=== PATIENT | female | born 1975 | race Caucasian/White ===

== ENCOUNTER 2023-10-20 09:02 | Inpatient (IN) | payer BC, SELFPAY ==
[2023-10-20] VITALS (35 sets, daily range): BP systolic 91–123; BP diastolic 61–78; PULSE 74–95; RESP 18; TEMP 36.6–37.1; O2SAT 90–99; BMI 23.0; BMI 23.1
--- NOTE | 2023-10-20 09:25 | CT_ITS ---
Patient: PEDRO RUSH Facility:?[facility] RIS Patient ID:?[id number] Site Patient ID:?[id number]. Site :?[id number] Study:?CT-Head WITHOUT-10/20/2023 9:54:10 AM Ordering Physician:KAVITA Final Report: Indication: Fall Technique: Volumetric multidetector CT images of the head were obtained without the administration of low osmolar intravenous contrast. Comparison: None available Findings: There is no intra-axial or extra-axial fluid collection. There is no mass effect or midline shift. The ventricles and sulci are normal in size and position for age. There is mild chronic small vessel disease change within the subcortical and periventricular white matter. Otherwise, the brain parenchyma is preserved in attenuation and ahuja-white differentiation. The orbits and their contents are grossly within normal limits. The bony calvarium is grossly intact. The paranasal sinuses are clear. The mastoid air cells are well aerated. Impression: Chronic small-vessel disease changes of the white matter without acute intracranial abnormality. Please note that all CT scans at this facility use dose modulation, iterative reconstruction, and/or weight-based dosing when appropriate to reduce radiation dose to as low as reasonably achievable. Dictated by Joe Pimentel MD @ 10/20/2023 9:57:33 AM Signed by:?Joe Pimentel MD @10/20/2023 9:57:33 AM (Electronic Signature)
--- NOTE | 2023-10-20 09:41 | ED.GENADULT ---
HPI - General Adult General Date Seen: 10/20/23 Chief complaint: Fall/Minor Trauma Stated complaint: fall, dizzy. head pain Time Seen by Provider: 10/20/23 09:25 Source: patient and RN notes reviewed Mode of arrival: ambulatory Limitations: no limitations History of Present Illness HPI narrative: Patient is a 48-year-old woman here for evaluation of fall with loss of consciousness, dizziness, suspect dehydration. She says on Friday and a little bit yesterday she had vomiting without associated diarrhea. Last night, she says she felt dizzy and fell, she is not sure if she passed out and fell and hit her head or if she hit her head and was knocked out but she does think she was briefly unconscious. She said there was a little bit of bleeding from the back of her scalp although she can not find a wound now. She denies neck pain but does have a little bit of a headache and has felt persistently dizzy. She is concerned that she might be dehydrated as she has not urinated since 10:00 last night. She says she has been able to drink fluids but has not been able to eat very much. She has not had significant abdominal pain. No fevers. She smokes, she says that she is ?trying to quit when I asked about alcohol. She says she did have some alcohol last night, but she has been trying to wean herself off and thinks that may be contributing to the vomiting. Denies other substance use. Related Data Allergies Allergy/AdvReac Type Severity Reaction Status Date / Time No Known Drug Allergies Allergy Verified 10/20/23 09:14 Review of Systems Status of ROS: Reports: 10 or more systems reviewed and unremarkable except as noted in History and below [facility] Social History Smoking Status: Current some day smoker What tobacco products do you use: cigarettes Smoking packs per day: 1 Smoking cigarettes per day: 20.0 Do you use any of these nicotine containing products: None How often do you have a drink containing alcohol: 2-3 times a week How many standard drinks containing alcohol do you have on a typical day: 3 or 4 How often do you have six or more drinks on one occasion: Never AUDIT-C Alcohol total score: 4 Non-prescribed substance use: denies use Exam Narrative: Exam Narrative: Vital signs as noted above. In general, an alert, nontoxic woman. Head: Normocephalic, atraumatic. I am not able to find any hematoma, laceration or other wounds. Eyes: Pupils are equal reactive. Extraocular movements are full. Conjunctivae are normal. ENT: Mucous membranes are slightly dry peer Neck: Supple without lymphadenopathy. Heart: Regular rate and rhythm. No murmur or rub. Lungs: Clear bilaterally. No increased work of breathing, crackles or wheezes. Abdomen: Soft and nontender. No organomegaly. Extremities: Well perfused. No edema. No calf tenderness. Pulses intact. Neurologic: Patient is alert and oriented to person and place. Speech is fluent. Face is symmetric. Moves all extremities equally. No tremulousness. Affect: Normal. Skin: Warm and dry. Well perfused. Const: Vital Signs, click to edit/add: Vital Signs - 24 hr 10/20/23 09:07 10/20/23 09:36 10/20/23 09:37 Temperature 97.9 F Pulse Rate 87 86 Pulse Rate [Right Pulse Oximeter] 95 Respiratory Rate 18 Blood Pressure 98/71 Blood Pressure [Ri ght Upper Arm] 91/61 Pulse Oximetry 95 94 94 Oxygen Delivery Me thod Room Air 10/20/23 09:47 10/20/23 09:51 10/20/23 10:00 Temperature Pulse Rate 82 88 85 Pulse Rate [Right Pulse Oximeter] Respiratory Rate Blood Pressure 102/71 Blood Pressure [Ri ght Upper Arm] Pulse Oximetry 95 96 96 Oxygen Delivery Me thod 10/20/23 10:01 10/20/23 10:11 10/20/23 10:11 Temperature Pulse Rate 81 84 84 Pulse Rate [Right Pulse Oximeter] Respiratory Rate Blood Pressure 103/71 99/70 99/70 Blood Pressure [Ri ght Upper Arm] Pulse Oximetry 97 96 96 Oxygen Delivery Me thod 10/20/23 10:15 10/20/23 10:21 10/20/23 10:30 Temperature Pulse Rate 85 83 80 Pulse Rate [Right Pulse Oximeter] Respiratory Rate Blood Pressure 97/78 Blood Pressure [Ri ght Upper Arm] Pulse Oximetry 97 93 95 Oxygen Delivery Me thod 10/20/23 10:32 10/20/23 10:33 10/20/23 10:42 Temperature Pulse Rate 78 82 81 Pulse Rate [Right Pulse Oximeter] Respiratory Rate Blood Pressure 97/65 100/69 Blood Pressure [Ri ght Upper Arm] Pulse Oximetry 95 95 95 Oxygen Delivery Me thod 10/20/23 10:45 10/20/23 10:52 10/20/23 11:01 Temperature Pulse Rate 82 83 Pulse Rate [Right Pulse Oximeter] Respiratory Rate Blood Pressure 108/71 107/72 Blood Pressure [Ri ght Upper Arm] Pulse Oximetry 97 94 Oxygen Delivery Me thod 10/20/23 11:08 10/20/23 11:15 10/20/23 11:30 Temperature Pulse Rate 83 82 86 Pulse Rate [Right Pulse Oximeter] Respiratory Rate Blood Pressure Blood Pressure [Ri ght Upper Arm] Pulse Oximetry 98 98 95 Oxygen Delivery Me thod 10/20/23 11:31 Temperature Pulse Rate 87 Pulse Rate [Right Pulse Oximeter] Respiratory Rate Blood Pressure 113/77 Blood Pressure [Ri ght Upper Arm] Pulse Oximetry 93 Oxygen Delivery Me thod Documenting provider has reviewed patient's vital signs: yes Course Course ED Course: Given lack of clarity about whether not she had a loss of consciousness due to hitting her head, did order a CT scan of the head. Lab an EKG also pending, will place an IV and give a L of normal saline, check alcohol level and venous gas. Neurologic exam is reassuring. Head CT by my review is negative, final radiology read is negative for acute findings. Labs are notable for a normal white blood cell count hemoglobin, platelets are low likely related to alcohol. Gas showed a pH of 7.47, venous bicarb was 37, however she does appear to be significantly dehydrated with a sodium of 128, an initial potassium of 2.6 and a creatinine of 2.9. Initial gap was 16. LFTs are predictably mildly abnormal with a bilirubin of 2.2, AST 143 an ALT of 38, likely related alcohol use. Lipase was normal. Urinalysis pending. Blood alcohol was negative here. She had a total of 2 L of normal saline, 50 mEq of oral potassium and 10 of IV potassium. I rechecked her metabolic panel and while her potassium is now normal at 3.6 I suspect this will fall back down as she read distributes her potassium. Magnesium was 1.8. She continues to show sign of acute kidney injury with a creatinine of 2.5. Baseline is found to be 0.8 a couple of years ago. I have recommended that she stay for continued hydration, replacement of potassium, and trending of labs. Vital Signs Vital signs: Initial Vital Signs Temperature 97.9 F 10/20/23 09:07 Temperature Source Temporal Artery Scan 10/20/23 09:07 Pulse Rate 95 10/20/23 09:07 Pulse Rhythm Regular 10/20/23 09:07 Respiratory Rate 18 10/20/23 09:07 Blood Pressure 91/61 10/20/23 09:07 Blood Pressure Mean 71 10/20/23 09:07 Blood Pressure Position Sitting 10/20/23 09:07 Pulse Oximetry 95 10/20/23 09:07 Oxygen Delivery Method Room Air 10/20/23 09:07 Vital Signs Temperature 97.9 F 10/20/23 09:07 Pulse Rate 95 10/20/23 09:07 Respiratory Rate 18 10/20/23 09:07 Blood Pressure 91/61 10/20/23 09:07 Pulse Oximetry 95 10/20/23 09:07 Oxygen Delivery Method Room Air 10/20/23 09:07 Temperature 97.9 F 10/20/23 09:07 Pulse Rate 87 10/20/23 11:31 Respiratory Rate 18 10/20/23 09:07 Blood Pressure 113/77 10/20/23 11:31 Pulse Oximetry 93 10/20/23 11:31 Oxygen Delivery Method Room Air 10/20/23 09:07 Medications Administered Medications: Discontinued Medications Generic Name Dose Route Start Last Admin Trade Name Freq PRN Reason Stop Dose Admin Sodium Chloride 1,000 mls @ 1,000 mls/hr 10/20/23 09:45 10/20/23 11:00 0.9 % Sodium Chloride 1000 Ml IV 10/20/23 10:44 Infused .Q1H BRANDIE Infusion Sodium Chloride 1,000 mls @ 1,000 mls/hr 10/20/23 10:45 10/20/23 12:17 0.9 % Sodium Chloride 1000 Ml IV 10/20/23 11:44 Infused .Q1H BRANDIE Infusion Potassium Chloride 10 meq in 100 mls @ 100 mls/hr 10/20/23 10:44 10/20/23 12:05 Potassium Chloride IVPB 10/20/23 11:43 Infused ONCE ONE Infusion Ondansetron HCl 4 mg 10/20/23 09:56 10/20/23 10:16 Ondansetron 2 Mg/Ml Inj IVP 10/20/23 09:57 4 mg ONCE ONE Administration Potassium Bicarbonate 50 meq 10/20/23 10:44 10/20/23 11:00 Potassium Bicarb 25 Meq Effervescent Tab PO 10/20/23 10:45 50 meq ONCE ONE Administration Medical Decision Making Lab Data Labs: Lab Results 10/20/23 10/20/23 Range/Units 09:50 12:13 WBC 9.59 (4.50-11.00) K/uL RBC 4.58 (4.00-5.20) m/uL Hgb 15.5 (12.0-16.0) gm/dL Hct 44.7 (33.0-51.0) % MCV 98 (80-100) fL MCH 34 (26-34) pg MCHC 35 (32-36) gm/dL RDW Coeff of Iliana 11.7 (11.5-15.5) % Plt Count 99 L (140-440) K/uL Neut % (Auto) 63.0 (42.0-72.0) % Lymph % (Auto) 27.8 (20-44) % [place] % (Auto) 7.6 (0.0-11.0) % Eos % (Auto) 1.0 (0.0-7.0) % Baso % (Auto) 0.4 (0.0-3.0) % Neut # (Auto) 6.03 (1.7-7.0) K/uL Lymph # (Auto) 2.67 (0.90-2.90) K/uL [place] # (Auto) 0.70 (0.00-0.90) K/UL Eos # (Auto) 0.10 (0.00-0.50) K/uL Baso # (Auto) 0.04 (0.00-0.30) K/uL Abs Immat Gran (auto) 0.02 (0.00-0.30) K/uL Imm/Tot Granulo (auto) 0.2 % VBG pH 7.473 H (7.32-7.43) VBG pCO2 50 (40-50) mmHG VBG pO2 < 30.1 (25-47) mmHG VBG HCO3 37 H (21-28) mmol/L Sodium 128 L 128 L (135-149) mmol/L Potassium 2.6 L* 3.6 (3.6-5.1) mmol/L Chloride 78 L 85 L (96-114) mmol/L Carbon Dioxide 34 H 32 (20-32) mmol/L Anion Gap 16 H 11 (7-15) mEq/L BUN 32 H 30 H (5-24) mg/dL Creatinine 2.9 H 2.5 H (0.5-1.5) mg/dL Estimated Creat Clear 19.62 22.76 Estimated GFR 19 23 ml/min Glucose 101 94 (60-115) mg/dL Calcium 9.8 8.0 L (8.4-10.6) mg/dL Magnesium 1.8 (1.5-2.6) mg/dL Total Bilirubin 2.2 H (0.1-1.5) mg/dL Direct Bilirubin 0.9 H (0.0-0.5) mg/dL AST 143 H (12-35) U/L ALT 38 H (4-35) U/L Alkaline Phosphatase 152 H (40-150) U/L Total Protein 9.2 H (6.0-8.3) g/dL Albumin 5.1 H (3.3-5.0) g/dL Lipase 225 (23-300) U/L Ethyl Alcohol < 0.01 L (0.01-0.03) % Discharge Plan Discharge Follow Up/Referrals: Christine Jeffrey PA-C [Primary Care Provider] -
[2023-10-20] MEDS: 0.9 % SODIUM CHLORIDE 1000 ml 1,000 ML IV ×2 (09:53→11:05)
[2023-10-20 10:03] LABS: HCO3 VBG 37 mmol/L (21-28); PCO2 VBG 50 mmHG (40-50); PO2 VBG < 30.1 mmHG (25-47); pH VBG 7.473 (7.32-7.43)
[2023-10-20 10:07] LABS: Basophils Absolute Auto 0.04 K/uL (0.00-0.30); Basophils Percent Auto 0.4 % (0.0-3.0); Hematocrit 44.7 % (33.0-51.0); Hemoglobin* 15.5 gm/dL (12.0-16.0); Immature Granulocytes Abs Auto 0.02 K/uL (0.00-0.30); Immature Granulocytes Pct Auto 0.2 %; Lymphocytes Absolute Auto 2.67 K/uL (0.90-2.90); Lymphocytes Percent Auto 27.8 % (20-44); Mean Corpuscular HGB Conc 35 gm/dL (32-36); Mean Corpuscular Hemoglobin 34 pg (26-34); Mean Corpuscular Volume 98 fL (80-100); Monocytes Percent Auto 7.6 % (0.0-11.0); Neutrophils Absolute Auto 6.03 K/uL (1.7-7.0); Platelet Count* 99 K/uL (140-440); RDW Coefficient of Variation % 11.7 % (11.5-15.5); Red Blood Count 4.58 m/uL (4.00-5.20); White Blood Count* 9.59 K/uL (4.50-11.00)
[2023-10-20 10:14] LABS: Slide Review Reflex No
[2023-10-20] MEDS: ONDANSETRON 2 MG/ML inj 4 MG IVP (10:16)
[2023-10-20 10:28] LABS: Albumin* 5.1 g/dL (3.3-5.0)
[2023-10-20 10:29] LABS: Chloride* 78 mmol/L (96-114); Sodium* 128 mmol/L (135-149)
[2023-10-20 10:31] LABS: Anion Gap 16 mEq/L (7-15); Bilirubin Direct* 0.9 mg/dL (0.0-0.5); Bilirubin Total* 2.2 mg/dL (0.1-1.5); Carbon Dioxide* 34 mmol/L (20-32); Creatinine* 2.9 mg/dL (0.5-1.5); Est. Creatinine Clearance* 19.62; Estimated Glomerular Filt Rate 19 ml/min; Total Protein* 9.2 g/dL (6.0-8.3)
[2023-10-20 10:32] LABS: Alanine Aminotransferase* 38 U/L (4-35); Alkaline Phosphatase* 152 U/L (40-150); Aspartate Amino Transferase* 143 U/L (12-35); Blood Urea Nitrogen* 32 mg/dL (5-24); Calcium* 9.8 mg/dL (8.4-10.6); Glucose* 101 mg/dL (60-115); Lipase* 225 U/L (23-300)
[2023-10-20 10:38] LABS: Ethanol* < 0.01 % (0.01-0.03); Potassium* 2.6 mmol/L (3.6-5.1)
[2023-10-20] MEDS: POTASSIUM BICARB 25 MEQ EFFERVESCENT TAB 50 MEQ PO (11:00)
[2023-10-20] MEDS: POTASSIUM CHLORIDE 10 MEQ/100 ML PIGGYBACK 100 MEQ IVPB (11:05)
[2023-10-20 12:18] LABS: Magnesium* 1.8 mg/dL (1.5-2.6)
[2023-10-20 12:31] LABS: Chloride* 85 mmol/L (96-114); Potassium* 3.6 mmol/L (3.6-5.1); Sodium* 128 mmol/L (135-149)
[2023-10-20 12:34] LABS: Anion Gap 11 mEq/L (7-15); Carbon Dioxide* 32 mmol/L (20-32); Creatinine* 2.5 mg/dL (0.5-1.5); Est. Creatinine Clearance* 22.76; Estimated Glomerular Filt Rate 23 ml/min
[2023-10-20 12:35] LABS: Blood Urea Nitrogen* 30 mg/dL (5-24); Glucose* 94 mg/dL (60-115)
[2023-10-20 13:10] LABS: Appearance Urine Clear (Clear); Bilirubin Urine Negative (Negative); Blood Urine Trace-lysed (Negative); Color Urine Yellow (Yellow); Glucose Urine Negative (Negative); Ketones Urine Negative (Negative); Leukocyte Esterase Urine Negative (Negative); Nitrite Urine Negative (Negative); Protein Urine Negative (Negative); Urobilinogen Urine 0.2 (0.2-1.0); pH Urine 7.5 (5.0-8.5)
[2023-10-20 13:24] LABS: RBC Urine 0-2 (0-2); Squamous Epithelial Cell Urine Few (None-Few); WBC Urine 0-2 (0-5)
--- NOTE | 2023-10-20 13:35 | ED.NURSE ---
report given to marie RAMIREZ.
[2023-10-20 14:04] LABS: INR 0.95 (0.91-1.10); Prothrombin Time 13.2 Seconds
[2023-10-20] MEDS: CALCIUM CARBONATE 500 MG CHEW PO (14:17)
--- NOTE | 2023-10-20 14:56 | PM.IMHP1 ---
Hospitalist- H&P: HPI History of Present Illness Date Seen: 10/20/23 Chief complaint: fall, dizzy. head pain Narrative: Ganga Blanc is a 48 year old female who presented to the ER today for a 3-4 day history of vomiting, dizziness, and concerns of dehydration. Vomiting began on Friday. No recent travel or concerning food intake, no hematemesis, no diarrhea. Her dizziness was severe last night, and she had a fall at home (unknown if she had true LOC). Worried that symptoms were related to attempt at cutting down on ETOH intake (had been drinking 1L of ETOH daily for some time, slowly cutting down). She had a couple of drinks last night, which helped symptoms. ER Course and Findings: - hypokalemia, given both oral and IV potassium replacement - hypotension on arrival with concern for dehydration, received 2L of NS - lab abnormalities: creatinine 2.8 (baseline <1), elevated LFTs and bilirubin, thrombocytopenia, hypokalemia and hypomagnesemia - negative head CT Labs repeated after electrolyte and IVF replaced; remained abnormal, so patient admitted for further management of GIORGIO, elevated LFTs, and ETOH withdrawal. Histories updated below, PCP is Christine Jeffrey PA-C at [facility]. Review of Systems Narrative: - notes early satiety for the past year or so - no CP, no palpitations, no dyspnea - + dry skin, no pruritis or discreet rashes PFSH PFS Medical History (Updated 10/20/23 @ 18:14 by Madiha Johnson MD) Hypothyroidism ?E03.9 - Hypothyroidism, unspecified (ICD-10) Essential hypertension ?I10 - Essential (primary) hypertension (ICD-10) Alcohol use disorder ?F10.90 - Alcohol use, unspecified, uncomplicated (ICD-10) Elevated LFTs ?R79.89 - Other specified abnormal findings of blood chemistry (ICD-10) Surgical History (Updated 10/20/23 @ 15:17 by Madiha Johnson MD) No history of previous surgery Family History (Updated 10/20/23 @ 15:17 by Madiha Johnson MD) Son Liver disease Social History (Updated 10/20/23 @ 15:17 by Madiha Johnson MD) Narrative: in 2014, currently living with son Guy. Daughter Rajwinder in [place], children would share medical decision making if needed. Full Code. 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 + 1/2ppd smoking, actively working on quitting. ETOH daily (1L/day), actively working on quitting. What is your current living situation?: I presently have a place to live Problems where you live: no known problems Problems where you live details: NA In the past 12 months, utilities in danger of being shut off: no In past 12 months, lack of transportation kept you from medical appts, meetings, work, or getting things needed for daily living: no In the past 12 mos, have been you worried that your food would run out before you had money to buy more?: never true In the past 12 mos, the food you bought just didn't last and you didn't have money to buy more?: never true Highest level of school completed/degree received: some college, no degree Smoking Status: Current every day smoker What tobacco products do you use: cigarettes Smoking packs per day: 0.5 Smoking cigarettes per day: 10.0 Years smoked: 35 Smoking pack-years: 17.50 Do you use any of these nicotine containing products: None How often do you have a drink containing alcohol: 4 or more times a week Alcohol type: hard liquor Alcohol type details: 1 pint linsor daily How many standard drinks containing alcohol do you have on a typical day: 3 or 4 How often do you have six or more drinks on one occasion: Daily or almost daily AUDIT-C Alcohol total score: 9 Non-prescribed substance use: denies use How often does anyone, including family, friends and others, physically hurt you: never How often does anyone, including family, friends and others, insult or talk down to you: sometimes How often does anyone, including family, friends and others, threaten you with harm: never How often does anyone, including family, friends and others, scream or curse at you: sometimes service: No Meds Home Medications and Allergies Home Medication Comments: - has been taking 50mg of Losartan daily at home (has 100mg tabs, cuts them in half), and 50mcg of Synthroid daily Allergies Allergy/AdvReac Type Severity Reaction Status Date / Time No Known Drug Allergies Allergy Verified 10/20/23 09:14 Exam Narrative: Exam Narrative: GEN: Alert and oriented, answering questions appropriately HEENT: EOMIs bilaterally, no scleral icterus CV: RRR, No concerning murmurs R: LCTA bilaterally without concerning wheezing, air movement adequate Ab: soft, no ttp Ext: wwp, no concerning edema Skin: No concerning skin lesions or rashes on exposed skin, no jaundice Neuro: No focal deficits, no resting tremor, gait not observed Psych: Appropriate Const: Vital Signs, click to edit/add: Vital Signs - 24 hr 10/20/23 09:07 10/20/23 09:36 10/20/23 09:37 Temperature 97.9 F Pulse Rate 87 86 Pulse Rate [Right Pulse Oximeter] 95 Respiratory Rate 18 Blood Pressure 98/71 Blood Pressure [Ri ght Arm] Blood Pressure [Ri ght Upper Arm] 91/61 Pulse Oximetry 95 94 94 Oxygen Delivery Me thod Room Air 10/20/23 09:47 10/20/23 09:51 10/20/23 10:00 Temperature Pulse Rate 82 88 85 Pulse Rate [Right Pulse Oximeter] Respiratory Rate Blood Pressure 102/71 Blood Pressure [Ri ght Arm] Blood Pressure [Ri ght Upper Arm] Pulse Oximetry 95 96 96 Oxygen Delivery Me thod 10/20/23 10:01 10/20/23 10:11 10/20/23 10:11 Temperature Pulse Rate 81 84 84 Pulse Rate [Right Pulse Oximeter] Respiratory Rate Blood Pressure 103/71 99/70 99/70 Blood Pressure [Ri ght Arm] Blood Pressure [Ri ght Upper Arm] Pulse Oximetry 97 96 96 Oxygen Delivery Me thod 10/20/23 10:15 10/20/23 10:21 10/20/23 10:30 Temperature Pulse Rate 85 83 80 Pulse Rate [Right Pulse Oximeter] Respiratory Rate Blood Pressure 97/78 Blood Pressure [Ri ght Arm] Blood Pressure [Ri ght Upper Arm] Pulse Oximetry 97 93 95 Oxygen Delivery Me thod 10/20/23 10:32 10/20/23 10:33 10/20/23 10:42 Temperature Pulse Rate 78 82 81 Pulse Rate [Right Pulse Oximeter] Respiratory Rate Blood Pressure 97/65 100/69 Blood Pressure [Ri ght Arm] Blood Pressure [Ri ght Upper Arm] Pulse Oximetry 95 95 95 Oxygen Delivery Me thod 10/20/23 10:45 10/20/23 10:52 10/20/23 11:01 Temperature Pulse Rate 82 83 Pulse Rate [Right Pulse Oximeter] Respiratory Rate Blood Pressure 108/71 107/72 Blood Pressure [Ri ght Arm] Blood Pressure [Ri ght Upper Arm] Pulse Oximetry 97 94 Oxygen Delivery Me thod 10/20/23 11:08 10/20/23 11:15 10/20/23 11:30 Temperature Pulse Rate 83 82 86 Pulse Rate [Right Pulse Oximeter] Respiratory Rate Blood Pressure Blood Pressure [Ri ght Arm] Blood Pressure [Ri ght Upper Arm] Pulse Oximetry 98 98 95 Oxygen Delivery Me thod 10/20/23 11:31 10/20/23 11:32 10/20/23 11:51 Temperature Pulse Rate 87 85 91 Pulse Rate [Right Pulse Oximeter] Respiratory Rate Blood Pressure 113/77 Blood Pressure [Ri ght Arm] Blood Pressure [Ri ght Upper Arm] Pulse Oximetry 93 94 97 Oxygen Delivery Me thod 10/20/23 12:00 10/20/23 12:01 10/20/23 12:15 Temperature Pulse Rate 84 91 84 Pulse Rate [Right Pulse Oximeter] Respiratory Rate Blood Pressure 110/72 Blood Pressure [Ri ght Arm] Blood Pressure [Ri ght Upper Arm] Pulse Oximetry 96 96 94 Oxygen Delivery Me thod 10/20/23 12:30 10/20/23 12:32 10/20/23 12:45 Temperature Pulse Rate 87 87 90 Pulse Rate [Right Pulse Oximeter] Respiratory Rate Blood Pressure 107/73 Blood Pressure [Ri ght Arm] Blood Pressure [Ri ght Upper Arm] Pulse Oximetry 93 94 94 Oxygen Delivery Me thod 10/20/23 13:37 10/20/23 14:07 Temperature 98.4 F 98.4 F Pulse Rate Pulse Rate [Right Pulse Oximeter] 90 90 Respiratory Rate 18 18 Blood Pressure Blood Pressure [Ri ght Arm] 123/78 123/78 Blood Pressure [Ri ght Upper Arm] Pulse Oximetry 99 99 Oxygen Delivery Me thod Room Air Room Air Hospitalist - H&P: Result Labs Labs: Short CBC 10/20/23 Range/Units 09:50 WBC 9.59 (4.50-11.00) K/uL Hgb 15.5 (12.0-16.0) gm/dL Hct 44.7 (33.0-51.0) % Plt Count 99 L (140-440) K/uL BMP 10/20/23 10/20/23 09:50 12:13 Sodium 128 L 128 L Potassium 2.6 L* 3.6 Chloride 78 L 85 L Carbon Dioxide 34 H 32 BUN 32 H 30 H Creatinine 2.9 H 2.5 H Glucose 101 94 Calcium 9.8 8.0 L Liver Function 10/20/23 Range/Units 09:50 Total Bilirubin 2.2 H (0.1-1.5) mg/dL Direct Bilirubin 0.9 H (0.0-0.5) mg/dL AST 143 H (12-35) U/L ALT 38 H (4-35) U/L Alkaline Phosphatase 152 H (40-150) U/L Albumin 5.1 H (3.3-5.0) g/dL Urine 10/20/23 Range/Units 13:00 Urine Color Yellow (Yellow) Urine Appearance Clear (Clear) Urine pH 7.5 (5.0-8.5) Ur Specific [place] 1.010 (1.000-1.030) Urine Protein Negative (Negative) Urine Glucose (UA) Negative (Negative) Assessment and Plan Assessment and plan (1) Acute kidney injury: Problem comment: - creatinine 2.8 on 10/20, baseline <1 - likely prerenal given history of vomiting prior to admission, improved in ED with IVF rehydration - continue IVFs, hold nephrotoxins, follow Status: Acute (2) Alcohol use disorder: Problem comment: - with sequela of elevated LFTs, abnormal electrolytes, thrombocytopenia; last drink 10/19/2023 - on WA protocol, no evidence of concerning withdrawal symptoms upon admission 10/20 Status: Acute (3) Elevated LFTs: Problem comment: - 2/2 ETOH, will continue to follow Status: Acute (4) Essential hypertension: Problem comment: - hypotensive on arrival - on 50mg of Losartan as outpatient; holding this given GIORGIO, lower BPs Status: Acute (5) Hypothyroidism: Problem comment: - due for repeat TSH, continue home Synthroid pending results Status: Acute Plan - per above - requests Full Code status - anticipate home with son when medically appropriate, likely 2 days
[2023-10-20] MEDS: 0.9 % SODIUM CHLORIDE 1000 ml 1,000 ML 125 ML IV ×2 (15:45→23:38)
[2023-10-20] MEDS: PANTOPRAZOLE SODIUM 40 MG INJ IVP (15:45)
--- NOTE | 2023-10-20 17:00 | US_ITS ---
Patient: PEDRO RUSH Facility:?[facility] Patient ID:?[id number] Site Patient ID:?[id number]. Site :?[id number] Study:?US-Abdomen RUQ-10/20/2023 5:24:35 PM Ordering Physician:DAVID Final Report: INDICATION: Elevated liver function tests TECHNIQUE: Ultrasound abdomen limited. Sonographic images of the right upper quadrant were obtained using ahuja-scale and color Doppler images. COMPARISON: None FINDINGS: Liver: Diffusely increased in echogenicity without focal lesion. No masses. No intrahepatic biliary dilatation. Gallbladder: No cholelithiasis. Moderate gallbladder sludge. No gallbladder wall thickening. Common bile duct: 5 mm. Pancreas: Partially obscured by bowel gas without discrete lesion. Right kidney: Normal in size. Normal echotexture and cortex. No masses, stones, or hydronephrosis. Vasculature: Proximal abdominal aorta and IVC are normal. IMPRESSION: 1. Gallbladder sludge without evidence of cholelithiasis or cholecystitis. 2. Moderate hepatic steatosis. Dictated by Hank Boo MD @ 10/21/2023 7:20:22 AM Signed by:?Hank Boo MD @10/21/2023 7:20:22 AM (Electronic Signature)
[2023-10-20] MEDS: THIAMINE 100 MG TABLET PO (19:00)
[2023-10-20] MEDS: POTASSIUM BICARB 25 MEQ EFFERVESCENT TAB PO (19:00)
--- NOTE | 2023-10-20 19:27 | PC.NURSE ---
Nursing Care Hours: [id number] Pt this shift arrived from ED via wheelchair. Independent ambulation with steady gait. Pt appears to be slightly restless aeb sitting, standing and sitting again while fiddling with gown. Pt c/o intermittent hot flashes during admission. CIWA assessment done and scored 7, then 2 and 2. Scheduled for Q4H now. Ultrasound of abdomen done at bedside. Poor appetite over the last three days reported by pt. Pt eating about 25% of ordered trays before feeling full. Drinking water sufficiently, 800ml drank on this shift.
[2023-10-20] MEDS: SODIUM CHLORIDE 0.9 % (FLUSH) 10 ML SYRINGE 5 ML IVF (21:24)
[2023-10-20] MEDS: MELATONIN 3 MG TABLET PO (21:24)
[2023-10-20] MEDS: GABAPENTIN 300 MG CAPSULE PO (21:24)
[2023-10-21 06:00] VITALS: BP 114/79; PULSE 77; RESP 16; TEMP 36.3; O2SAT 97
[2023-10-21] MEDS: OMEPRAZOLE 20 MG CAPSULE DR 40 MG PO (06:09)
[2023-10-21 06:46] LABS: Basophils Percent Auto 0.7 % (0.0-3.0); Eosinophils Percent Auto 1.5 % (0.0-7.0); Hematocrit 34.1 % (33.0-51.0); Hemoglobin* 11.6 gm/dL (12.0-16.0); Immature Granulocytes Pct Auto 0.2 %; Lymphocytes Percent Auto 39.3 % (20-44); Mean Corpuscular HGB Conc 34 gm/dL (32-36); Mean Corpuscular Hemoglobin 34 pg (26-34); Mean Corpuscular Volume 100 fL (80-100); Neutrophils Percent Auto 49.3 % (42.0-72.0); Platelet Count* 61 K/uL (140-440); RDW Coefficient of Variation % 11.8 % (11.5-15.5)
[2023-10-21 06:57] LABS: Albumin* 3.3 g/dL (3.3-5.0); Chloride* 96 mmol/L (96-114); Slide Review Reflex No; Sodium* 133 mmol/L (135-149)
[2023-10-21 06:58] LABS: Potassium* 3.2 mmol/L (3.6-5.1)
[2023-10-21 07:00] VITALS: BP 117/87; PULSE 79; RESP 16; TEMP 36.8; O2SAT 100
[2023-10-21 07:00] LABS: Alkaline Phosphatase* 108 U/L (40-150); Anion Gap 7 mEq/L (7-15); Aspartate Amino Transferase* 67 U/L (12-35); Bilirubin Total* 1.5 mg/dL (0.1-1.5); Blood Urea Nitrogen* 25 mg/dL (5-24); Carbon Dioxide* 30 mmol/L (20-32); Creatinine* 1.2 mg/dL (0.5-1.5); Est. Creatinine Clearance* 47.43; Estimated Glomerular Filt Rate 56 ml/min; Glucose* 92 mg/dL (60-115)
[2023-10-21 07:01] LABS: Alanine Aminotransferase* 21 U/L (4-35); Calcium* 7.8 mg/dL (8.4-10.6); Gamma Glutamyl Transpeptidase* 539 U/L (8-55); Magnesium* 1.8 mg/dL (1.5-2.6)
[2023-10-21] MEDS: FOLIC ACID 1 MG TABLET PO (07:59)
[2023-10-21] MEDS: 0.9 % SODIUM CHLORIDE 1000 ml 1,000 ML 125 ML IV (07:59)
[2023-10-21] MEDS: GABAPENTIN 300 MG CAPSULE PO (07:59)
[2023-10-21 11:00] VITALS: BP 114/88; PULSE 85; RESP 18; TEMP 36.6; O2SAT 98
--- NOTE | 2023-10-21 11:56 | NUTR.NU ---
RDN with MD consult for EtOH use and early satiety. Patient admitted for dehydration. Current weight 132lb 3.2oz; height 5ft 3in; BMI is 23.4 kg/m2. Current diet is regular. Meal intakes have been at 25 & 75% since admit. RDN visited with patient whom reports feeling bloated when eating solid foods. She tries to eat healthy and make meals at home, however she is only cooking for 2 people most of the time and she usually makes too much at one time. She tries to freeze a lot of meals but sometimes these become freezer burnt and then she doesn't eat them. She will sometimes eat out at [employer]. She struggles a lot with finding healthy meals to make for 2 people. She drinks a lot of water daily, about 8 cups or more. She also consumes about 1L of alcohol daily. She reports she is trying to cut back on this. She expresses to me that her goal is to become healthier. RDN offered diet education related to general healthy diet and meal planning. Patient agreed to receive diet education. Discussed following a general, healthy diet using the plate method that includes ? plate non-starchy vegetables and fruit, ? plate whole grains/starch, ? plate healthy protein (fish, poultry, legumes, nuts/seeds), and healthy fats. Discussed how to plan meals for 2 people and how to purchase more shelf-stable foods that won't fast. Handouts provided to support discussion. RDN contact information provided and encouraged patient to call with questions. RDN to follow up as needed.
[2023-10-21] MEDS: NALTREXONE HCL 50 MG TABLET PO (12:46)
[2023-10-21 15:00] VITALS: BP 123/85; PULSE 87; PULSE 97; RESP 18; TEMP 36.4; O2SAT 97
--- NOTE | 2023-10-21 15:26 | PC.NURSE ---
End of shift: The patient is awake and alert. No reports of pain this morning. IV fluids continue... good PO intake and tolerating food with no N/V. Up ad danica.. encouraged walks throughout the day. The patient hopes to go home later. Calls appropriately. Juli RAMIREZ
[2023-10-21 16:00] VITALS: BP 123/83; PULSE 87; RESP 18; TEMP 36.4; O2SAT 97
--- NOTE | 2023-10-21 17:41 | PM.DS1 ---
DS: Providers Provider Date Seen: 10/21/23 Date of admission: 10/20/23 14:53 Primary care physician: Christine Jeffrey PA-C Admitting Clinician: Shu Scott MD Consults: 10/20/23 14:25 Consult to Learning Solutions Specialist [CONS] Routine Comment: pt would like support group resources Reason for Consult:: Social Service Consult Substance Abuse Screening 10/20/23 18:11 Consult to Nutrition [CONS] Routine Comment: Reason for consult:: Nutritional Consult Comment: ETOH use, earlier satiety Attending Physician on discharge: Shu Scott MD Date of Discharge: 10/21/23 DS: Diagnosis Discharge Diagnosis (1) Alcohol use disorder: Status: Acute Problem details: - with sequela of elevated LFTs, abnormal electrolytes, thrombocytopenia; last drink 10/19/2023 - on CIWA protocol, no evidence of concerning withdrawal symptoms upon admission 10/20 through to discharge on 10/21. - discussed use of gabapentin and naltrexone as it relates to anxiety and addictive cravings -follow-up with mental health provider as discussed with patient (2) Hypothyroidism: Status: Acute Problem details: - TSH 3.0 (3) Essential hypertension: Status: Acute Problem details: - hypotensive on arrival-resolved. -restart home meds at discharge (4) Elevated LFTs: Status: Acute Problem details: -resolving/improving (5) Dehydration: Status: Acute Problem details: Resolved (6) Acute kidney injury: Status: Acute Problem details: - creatinine 2.8 on 10/20, baseline <1, 1.2 at discharge - likely prerenal given history of vomiting prior to admission, improved in ED with IVF rehydration - continue IVFs, hold nephrotoxins, follow DS: Summary Hospital Course Hospital Course: FINAL DIAGNOSIS/FOLLOW UP ISSUES: 1. Continued alcohol abstinence, alcohol rehab and counseling. Starting naltrexone 50 mg daily and gabapentin 300 mg b.i.d. Referring to [facility] mental health care clinic with Dany KELLEY; mental health provider). BRIEF HOSPITAL COURSE: Patient was admitted for overnight. Synopsis of acute inpatient issues are outlined above. Chronic medical conditions with notable findings outlined above. DISCHARGE MEDICATIONS: See Reconciled list - SIGNIFICANT CHANGES: Naltrexone 50 mg daily Gabapentin 300 mg b.i.d. Specific instructions to the patient and follow-up are outlined below. REVIEW OF SYSTEMS No new chest pain or dyspnea Pain controlled No voiding difficulties Tolerating diet challenge PHYSICAL EXAM: CONSTITUTIONAL: calm, insightful. VITAL SIGNS: see record. HEENT: Normocephalic, atraumatic. PERRL, EOMI, conjunctivae pink, no scleral icterus. Ears and nose externally normal. Pharynx normal. NECK: No JVD. No carotid bruit, no thyromegaly, no adenopathy. CHEST: Clear to auscultation bilaterally. HEART: S1 and S2 normal. Edema ABDOMEN: Soft, nontender. Normal bowel sounds. MUSCULOSKELETAL: No gross joint deformity or swelling. NEURO: Cranial nerves intact. Grossly intact. No asymmetric findings. SKIN: No rashes, petechiae, concerning changes PSYCHIATRIC: Mood euthymic. DISPOSITION: home with family/friends. Time spent on discharge 37 minutes. Time Spent with Patient Time attestation: Total time spent providing and/or coordinating discharge services: Exam Const: Vital Signs, click to edit/add: Vital Signs - 24 hr 10/20/23 19:00 10/20/23 19:00 10/20/23 23:30 Temperature 98.7 F 98.8 F Pulse Rate [Apical ] 80 Pulse Rate [Right Pulse Oximeter] 74 74 80 Respiratory Rate 18 18 18 Blood Pressure [Ri ght Arm] 106/77 112/75 Pulse Oximetry 92 90 Oxygen Delivery Me thod Room Air Room Air 10/21/23 06:00 10/21/23 07:00 10/21/23 11:00 Temperature 97.3 F L 98.2 F 97.9 F Pulse Rate [Apical ] Pulse Rate [Right Pulse Oximeter] 77 79 85 Respiratory Rate 16 16 18 Blood Pressure [Ri ght Arm] 114/79 117/87 114/88 Pulse Oximetry 97 100 98 Oxygen Delivery Me thod Room Air Room Air Room Air 10/21/23 16:00 Temperature 97.6 F Pulse Rate [Apical ] Pulse Rate [Right Pulse Oximeter] 87 Respiratory Rate 18 Blood Pressure [Ri ght Arm] 123/83 Pulse Oximetry 97 Oxygen Delivery Me thod Room Air DS: Data Data Completed and Pending Labs on day of discharge: Labs from last 24 hours 10/21/23 06:06 WBC 4.10 L RBC 3.40 L Hgb 11.6 L Hct 34.1 MCV 100 MCH 34 MCHC 34 RDW Coeff of Iliana 11.8 Plt Count 61 L Neut % (Auto) 49.3 Lymph % (Auto) 39.3 [place] % (Auto) 9.0 Eos % (Auto) 1.5 Baso % (Auto) 0.7 Neut # (Auto) 2.00 Lymph # (Auto) 1.60 [place] # (Auto) 0.40 Eos # (Auto) 0.10 Baso # (Auto) 0.00 Abs Immat Gran (auto) 0.00 Imm/Tot Granulo (auto) 0.2 Sodium 133 L Potassium 3.2 L Chloride 96 Carbon Dioxide 30 Anion Gap 7 BUN 25 H Creatinine 1.2 Estimated Creat Clear 47.43 Estimated GFR 56 Glucose 92 Calcium 7.8 L Magnesium 1.8 Total Bilirubin 1.5 GGT 539 H AST 67 H ALT 21 Alkaline Phosphatase 108 Total Protein 6.0 Albumin 3.3 Discharge Plan Discharge Disposition: Home, Self-Care Date of Admission: 10/20/23 14:53 Attending Provider on Discharge: Shu Scott Primary Care Provider: Christine Jeffrey Condition: Improved Anticipated Discharge Date/Time: 10/21/23 16:37 Discharge Medications: New naltrexone 50 mg tablet 50 mg PO DAILY Qty: 30 0RF gabapentin 300 mg capsule 300 mg PO BID Qty: 60 0RF Discharge Orders: Discharge Order (Routine); Ordered 10/21/23 Ordered By: Shu Scott Patient Education: Gabapentin (By mouth), Naltrexone (By mouth), Dehydration (DC), Acute Kidney Injury (DC), Abuse of Alcohol (DC) Additional Instructions: [facility] Dany Villafana DNP, LEAD HOUSEKEEPER, PMHNP- [email or web address] [facility] [id number] Highly encourage AA program; sponsor for sobriety please reach out to Dany for an appt for ongoing care of anxiety, sobriety. Activity Level: No Restrictions Discharge Diet: Regular Follow Up Appointments: Christine Jeffrey, PASusanaC [Primary Care Provider] - 10/28/23 Forms: [employer] Info Instructions
== END 2023-10-21 16:51 | disposition home or self-care (01) | DRG 460 ==
LOC: ED 13:12 → MEDSURG 13:29
PROVIDERS: Family Medicine; Admitting Provider Family Medicine; Emergency Provider Emergency Medicine; PCP Physician Assistant Medical; Visit Provider Family Medicine
DX: N17.9 Acute kidney failure, unspecified (principal); F10.980 Alcohol use, unspecified with alcohol-induced anxiety disorder; F10.988 Alcohol use, unspecified with other alcohol-induced disorder; R42 Dizziness and giddiness; D69.6 Thrombocytopenia, unspecified; R94.5 Abnormal results of liver function studies; E86.0 Dehydration; I10 Essential (primary) hypertension; F17.210 Nicotine dependence, cigarettes, uncomplicated; W19.XXXA Unspecified fall, initial encounter; E03.9 Hypothyroidism, unspecified
CPT/HCPCS: 36415; 70450; 76705; 80048; 80053; 80076; 81001; 82077; 82803; 82977; 83690; 83735; 84443; 85025; 85610; 93005; 99284; 99291; A9270; C9113; G0390; J2405; J3480; J7030

== ENCOUNTER 2023-12-15 16:25 | Emergency (ER) | payer BC, SELFPAY ==
--- NOTE | 2023-12-16 22:34 | ED_ITS ---
HPI - General Adult General Stated complaint: Dehydration Time Seen by Provider: 12/15/23 16:51 History of Present Illness HPI narrative: Left without being seen Related Data Previous Rx's Medication Instructions Recorded gabapentin 300 mg capsule 300 mg PO BID #60 caps 10/21/23 naltrexone 50 mg tablet 50 mg PO DAILY #30 tabs 10/21/23 Allergies Allergy/AdvReac Type Severity Reaction Status Date / Time No Known Drug Allergies Allergy Verified 10/20/23 09:14 [facility] Medical History (Updated 10/29/23 @ 00:01 by Mando Tolentino) Hypothyroidism ?E03.9 - Hypothyroidism, unspecified (ICD-10) Essential hypertension ?I10 - Essential (primary) hypertension (ICD-10) Alcohol use disorder ?F10.90 - Alcohol use, unspecified, uncomplicated (ICD-10) Elevated LFTs ?R79.89 - Other specified abnormal findings of blood chemistry (ICD-10) Surgical History (Updated 10/20/23 @ 15:17 by Madiha Johnson MD) No history of previous surgery Family History (Updated 10/20/23 @ 15:17 by Madiha Johnson MD) Son Liver disease Social History (Updated 10/20/23 @ 15:17 by Madiha Johnson MD) Narrative: in 2014, currently living with son Guy. Daughter Rajwinder in [place], children would share medical decision making if needed. Full Code. 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 + 1/2ppd smoking, actively working on quitting. ETOH daily (1L/day), actively working on quitting. What is your current living situation?: I presently have a place to live Problems where you live: no known problems Problems where you live details: NA In the past 12 months, utilities in danger of being shut off: no In past 12 months, lack of transportation kept you from medical appts, meetings, work, or getting things needed for daily living: no In the past 12 mos, have been you worried that your food would run out before you had money to buy more?: never true In the past 12 mos, the food you bought just didn't last and you didn't have money to buy more?: never true Highest level of school completed/degree received: some college, no degree Smoking Status: Current every day smoker What tobacco products do you use: cigarettes Smoking packs per day: 0.5 Smoking cigarettes per day: 10.0 Years smoked: 35 Smoking pack-years: 17.50 Do you use any of these nicotine containing products: None How often do you have a drink containing alcohol: 4 or more times a week Alcohol type: hard liquor Alcohol type details: 1 pint linsor daily How many standard drinks containing alcohol do you have on a typical day: 3 or 4 How often do you have six or more drinks on one occasion: Daily or almost daily AUDIT-C Alcohol total score: 9 Non-prescribed substance use: denies use How often does anyone, including family, friends and others, physically hurt you : never How often does anyone, including family, friends and others, insult or talk down to you: sometimes How often does anyone, including family, friends and others, threaten you with harm: never How often does anyone, including family, friends and others, scream or curse at you: sometimes service: No Discharge Plan Discharge Patient Disposition: Left Without Being Seen
== END 2023-12-15 16:59 | disposition left against medical advice (07) ==
PROVIDERS: Emergency Provider Emergency Medicine; PCP Physician Assistant Medical
DX: Z53.21 Procedure and treatment not carried out due to patient leaving prior to being seen by health care provider (principal)
CPT/HCPCS: 99281

== ENCOUNTER 2024-03-28 08:11 | Observation (INO) | payer OTHER, SELFPAY ==
[2024-03-28] VITALS (21 sets, daily range): BP systolic 111–131; BP diastolic 75–104; PULSE 94–176; RESP 16–20; TEMP 36.3–37.2; O2SAT 92–97; BMI 23.8; BMI 22.6
[2024-03-28] MEDS: 0.9 % SODIUM CHLORIDE 1000 ml 1,000 ML IV (08:43)
[2024-03-28] MEDS: ADENOSINE 6 MG/2ML INJ IVP (08:45)
--- NOTE | 2024-03-28 08:58 | ED.GENADULT ---
HPI - General Adult General Chief complaint: Arrhythmia/Palpitations Stated complaint: Poss SVT Time Seen by Provider: 03/28/24 08:35 Source: patient Mode of arrival: ambulatory Limitations: no limitations History of Present Illness HPI narrative: 40-year-old female coming in today concerned that she is in SVT. Patient states this occurred approximately 4 years ago. States that for the last approximately 4 hours she has felt her heart racing. She denies feeling short of breath. She has slight pressure in her chest that she rates at 2/10. She denies cough or recent illness. Patient states that she was at a friend[place] cabin this weekend and states that she is likely dehydrated, states that she has not been drinking much water. Patient denies feeling dizzy or lightheaded. Patient states that she quit drinking alcohol on Friday, but does state that she drank 4 alcoholic beverages last night. She denies fevers or chills, no nausea or vomiting. Complains of a mild headache. Denies abdominal pain. Related Data Previous Rx's ?Medication ?Instructions ?Recorded gabapentin 300 mg capsule 300 mg PO BID #60 caps 10/21/23 naltrexone 50 mg tablet 50 mg PO DAILY #30 tabs 10/21/23 Allergies Allergy/AdvReac Type Severity Reaction Status Date / Time No Known Drug Allergies Allergy Verified 10/20/23 09:14 Review of Systems Status of ROS: Reports: 10 or more systems reviewed and unremarkable except as noted in History and below [facility] Medical History Hypothyroidism ?E03.9 - Hypothyroidism, unspecified (ICD-10) Essential hypertension ?I10 - Essential (primary) hypertension (ICD-10) Alcohol use disorder ?F10.90 - Alcohol use, unspecified, uncomplicated (ICD-10) Elevated LFTs ?R79.89 - Other specified abnormal findings of blood chemistry (ICD-10) Surgical History No history of previous surgery Family History Son Liver disease Social History Narrative: in 2014, currently living with son Daughter Rajwinder in [place], children would share medical decision making if needed. Full Code. 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 + 1/2ppd smoking, actively working on quitting. ETOH daily (1L/day), actively working on quitting. What is your current living situation?: I presently have a place to live Problems where you live: no known problems Problems where you live details: NA In the past 12 months, utilities in danger of being shut off: no In past 12 months, lack of transportation kept you from medical appts, meetings, work, or getting things needed for daily living: no In the past 12 mos, have been you worried that your food would run out before you had money to buy more?: never true In the past 12 mos, the food you bought just didn't last and you didn't have money to buy more?: never true Highest level of school completed/degree received: some college, no degree Smoking Status: Current every day smoker What tobacco products do you use: cigarettes Smoking packs per day: 0.5 Smoking cigarettes per day: 10.0 Years smoked: 35 Smoking pack-years: 17.50 Do you use any of these nicotine containing products: None How often do you have a drink containing alcohol: 2-3 times a week Alcohol type: hard liquor Alcohol type details: 1 pint linsor daily How many standard drinks containing alcohol do you have on a typical day: 3 or 4 How often do you have six or more drinks on one occasion: Daily or almost daily AUDIT-C Alcohol total score: 8 Non-prescribed substance use: denies use How often does anyone, including family, friends and others, physically hurt you: never How often does anyone, including family, friends and others, insult or talk down to you: sometimes How often does anyone, including family, friends and others, threaten you with harm: never How often does anyone, including family, friends and others, scream or curse at you: sometimes service: No Exam Narrative: Exam Narrative: Well-nourished well-developed patient in no acute distress. Alert and oriented x3. Answers questions appropriately. Mood and affect are appropriate. Thoughts are goal oriented and rational. No tangential or magical thinking noted. Patient speaks in full sentences without needing to catch her breath. Smells of alcohol. HEENT: Normocephalic atraumatic. Pupils are equally round reactive to light. Extraocular muscles are intact. Conjunctivae are moist without any icterus noted. Slightly dry mucous membranes. Posterior pharynx is normal. Neck is soft. Cardiovascular: Heart is regular rhythm, tachycardic Lungs: Clear to auscultation bilaterally no wheezes rhonchi or rales are appreciated. Patient takes deep breaths without any discomfort. Abdomen: Soft and nontender nondistended with normal bowel sounds. Hepatomegaly. Extremities: Bilateral lower extremities are without edema. Skin: Well perfused. Const: Vital Signs, click to edit/add: Vital Signs - 24 hr 03/28/24 08:36 03/28/24 08:42 03/28/24 09:48 Temperature 97.3 F L Pulse Rate 109 H Respiratory Rate 20 16 Blood Pressure 112/84 Blood Pressure [Le ft Upper Arm] 128/104 H Pulse Oximetry 93 96 94 Oxygen Delivery Me thod Room Air Room Air 03/28/24 09:49 03/28/24 10:00 03/28/24 10:01 Temperature Pulse Rate 107 H 113 H 111 H Respiratory Rate 16 Blood Pressure 129/85 Blood Pressure [Le ft Upper Arm] Pulse Oximetry 94 95 95 Oxygen Delivery Me thod 03/28/24 10:15 03/28/24 10:17 03/28/24 10:30 Temperature Pulse Rate 109 H 107 H 110 H Respiratory Rate 16 Blood Pressure 128/87 Blood Pressure [Le ft Upper Arm] Pulse Oximetry 94 93 94 Oxygen Delivery Me thod 03/28/24 10:32 Temperature Pulse Rate 106 H Respiratory Rate 16 Blood Pressure 124/83 Blood Pressure [Le ft Upper Arm] Pulse Oximetry 95 Oxygen Delivery Me thod Course Course ED Course: Patient presents in SVT with a pulse of 175-180. EKG read by me confirms this. IV is established, normal saline started, and pads are placed on the patient. 6 mg of adenosine given. Patient converts to sinus tachycardia with a pulse of 1 10-115. Repeat EKG, read by me, shows sinus tachycardia with a pulse of 113. Labs were drawn: CBC shows white cell count of 11.49, hemoglobin 12.2, normal platelet count. Chemistry show potassium of 2.6. LFTs are abnormal. Normal CK. TSH elevated at 7. Blood alcohol level was 0.2 Patient given 40 mEq of oral potassium. Given that the patient presents in SVT and severe hypokalemia, I do not feel it is safe for this patient be discharged home at this time. Dr. Rodriges accepting the patient for admission. Vital Signs Vital signs: Initial Vital Signs Temperature 97.3 F L 03/28/24 08:36 Temperature Source Temporal Artery Scan 03/28/24 08:36 Respiratory Rate 20 03/28/24 08:36 Blood Pressure 128/104 H 03/28/24 08:36 Blood Pressure Mean 112 H 03/28/24 08:36 Blood Pressure Position Semi-Fowlers 03/28/24 08:36 Pulse Oximetry 93 03/28/24 08:36 Oxygen Delivery Method Room Air 03/28/24 08:36 Vital Signs Temperature 97.3 F L 03/28/24 08:36 Respiratory Rate 20 03/28/24 08:36 Blood Pressure 128/104 H 03/28/24 08:36 Pulse Oximetry 93 03/28/24 08:36 Oxygen Delivery Method Room Air 03/28/24 08:36 Temperature 97.3 F L 03/28/24 08:36 Pulse Rate 106 H 03/28/24 10:32 Respiratory Rate 16 03/28/24 10:32 Blood Pressure 124/83 03/28/24 10:32 Pulse Oximetry 95 03/28/24 10:32 Oxygen Delivery Method Room Air 03/28/24 09:48 Medications Administered Medications: Generic Name Dose Route Start Last Admin Trade Name Freq PRN Reason Stop Dose Admin Lactated Ringer's 1,000 mls @ 500 mls/hr 03/28/24 09:38 03/28/24 09:44 Lactated Ringers 1000 Ml IV 03/28/24 11:37 500 mls/hr .Q2H BRANDIE Administration Discontinued Medications Generic Name Dose Route Start Last Admin Trade Name Freq PRN Reason Stop Dose Admin Adenosine 6 mg 03/28/24 08:42 03/28/24 08:45 Adenosine 6 Mg/2ml Inj IVP 03/28/24 08:43 6 mg ONCE ONE Administration Sodium Chloride 1,000 mls @ 1,000 mls/hr 03/28/24 08:45 03/28/24 09:40 0.9 % Sodium Chloride 1000 Ml IV 03/28/24 09:44 Infused .Q1H BRANDIE Infusion Potassium Chloride 40 meq 03/28/24 09:56 03/28/24 10:24 Potassium Chloride 10 Meq Capsule Er PO 03/28/24 09:57 40 meq ONCE ONE Administration Medical Decision Making MDM Narrative Medical decision making narrative: 48-year-old female with alcohol use disorder presenting with hypokalemia in SVT - treatment and plan per above. Medical Records Medical records reviewed: Yes I reviewed the patient's medical records Lab Data Lab results reviewed: Yes I reviewed the patient's lab results Labs: Lab Results 03/28/24 Range/Units 08:40 WBC 11.49 H (4.50-11.00) K/uL RBC 3.45 L (4.00-5.20) m/uL Hgb 12.2 (12.0-16.0) gm/dL Hct 35.8 (33.0-51.0) % MCV 104 H (80-100) fL MCH 35 H (26-34) pg MCHC 34 (32-36) gm/dL RDW Coeff of Iliana 15.8 H (11.5-15.5) % Plt Count 173 (140-440) K/uL Neut % (Auto) 61.2 (42.0-72.0) % Lymph % (Auto) 24.3 (20-44) % [place] % (Auto) 11.7 H (0.0-11.0) % Eos % (Auto) 1.5 (0.0-7.0) % Baso % (Auto) 0.5 (0.0-3.0) % Neut # (Auto) 7.00 (1.7-7.0) K/uL Lymph # (Auto) 2.80 (0.90-2.90) K/uL [place] # (Auto) 1.30 H (0.00-0.90) K/UL Eos # (Auto) 0.20 (0.00-0.50) K/uL Baso # (Auto) 0.10 (0.00-0.30) K/uL Abs Immat Gran (auto) 0.10 (0.00-0.30) K/uL Imm/Tot Granulo (auto) 0.8 % Sodium 140 (135-149) mmol/L Potassium 2.6 L* (3.6-5.1) mmol/L Chloride 102 (96-114) mmol/L Carbon Dioxide 24 (20-32) mmol/L Anion Gap 14 (7-15) mEq/L BUN 6 (5-24) mg/dL Creatinine 0.5 (0.5-1.5) mg/dL Estimated Creat Clear 108.83 Estimated GFR 116 ml/min Glucose 134 H (60-115) mg/dL Calcium 8.7 (8.4-10.6) mg/dL Magnesium 1.6 (1.5-2.6) mg/dL Total Bilirubin 2.1 H (0.1-1.5) mg/dL Direct Bilirubin 1.3 H (0.0-0.5) mg/dL GGT 1507 H (8-55) U/L AST 201 H (12-35) U/L ALT 40 H (4-35) U/L Alkaline Phosphatase 316 H (40-150) U/L Total Creatine Kinase 27 L (41-117) U/L Troponin I 0.04 (0.01-0.04) ng/mL Total Protein 7.6 (6.0-8.3) g/dL Albumin 4.2 (3.3-5.0) g/dL TSH 7.090 H (0.270-4.20) uIU/mL Ethyl Alcohol 0.20 H (0.01-0.03) % Lab Acknowledgement Test Added ECG Data Attestation: I personally reviewed and interpreted this ECG as follows: Critical Care Time Critical Care Time Total Critical Care Time in Minutes: 30 Discharge Plan Discharge Clinical Impression: Hypokalemia, Alcohol use disorder, SVT (supraventricular tachycardia) Patient Disposition: Admitted As Observation Condition: Stable Prescriptions: No Action naltrexone 50 mg tablet 50 mg PO DAILY Qty: 30 0RF gabapentin 300 mg capsule 300 mg PO BID Qty: 60 0RF Follow Up/Referrals: Christine Jeffrey PA-C [Primary Care Provider] -
[2024-03-28 09:08] LABS: Basophils Percent Auto 0.5 % (0.0-3.0); Eosinophils Percent Auto 1.5 % (0.0-7.0); Hematocrit 35.8 % (33.0-51.0); Hemoglobin* 12.2 gm/dL (12.0-16.0); Immature Granulocytes Pct Auto 0.8 %; Lymphocytes Percent Auto 24.3 % (20-44); Mean Corpuscular HGB Conc 34 gm/dL (32-36); Mean Corpuscular Hemoglobin 35 pg (26-34); Mean Corpuscular Volume 104 fL (80-100); Monocytes Percent Auto 11.7 % (0.0-11.0); Neutrophils Percent Auto 61.2 % (42.0-72.0); Platelet Count* 173 K/uL (140-440); RDW Coefficient of Variation % 15.8 % (11.5-15.5); Red Blood Count 3.45 m/uL (4.00-5.20); White Blood Count* 11.49 K/uL (4.50-11.00)
[2024-03-28 09:14] LABS: Slide Review Reflex No
[2024-03-28 09:27] LABS: Albumin* 4.2 g/dL (3.3-5.0); Chloride* 102 mmol/L (96-114); Sodium* 140 mmol/L (135-149)
[2024-03-28 09:29] LABS: Creatinine* 0.5 mg/dL (0.5-1.5); Est. Creatinine Clearance* 108.83; Estimated Glomerular Filt Rate 116 ml/min
[2024-03-28 09:30] LABS: Alanine Aminotransferase* 40 U/L (4-35); Alkaline Phosphatase* 316 U/L (40-150); Anion Gap 14 mEq/L (7-15); Aspartate Amino Transferase* 201 U/L (12-35); Bilirubin Direct* 1.3 mg/dL (0.0-0.5); Bilirubin Total* 2.1 mg/dL (0.1-1.5); Blood Urea Nitrogen* 6 mg/dL (5-24); Calcium* 8.7 mg/dL (8.4-10.6); Carbon Dioxide* 24 mmol/L (20-32); Glucose* 134 mg/dL (60-115); Total Protein* 7.6 g/dL (6.0-8.3)
[2024-03-28 09:31] LABS: Magnesium* 1.6 mg/dL (1.5-2.6)
[2024-03-28 09:42] LABS: Troponin I* 0.04 ng/mL (0.01-0.04)
[2024-03-28] MEDS: LACTATED RINGERS 1000 ML 1,000 ML 500 ML IV (09:44)
[2024-03-28 09:50] LABS: Potassium* 2.6 mmol/L (3.6-5.1)
[2024-03-28 10:06] LABS: Creatine Kinase* 27 U/L (41-117)
[2024-03-28] MEDS: POTASSIUM CHLORIDE 10 MEQ CAPSULE ER 40 MEQ PO (10:24)
[2024-03-28 10:44] LABS: Gamma Glutamyl Transpeptidase* 1507 U/L (8-55)
[2024-03-28] MEDS: POTASSIUM BICARB 25 MEQ EFFERVESCENT TAB PO (12:02)
[2024-03-28] MEDS: THIAMINE 100 MG TABLET PO (12:02)
[2024-03-28 12:06] LABS: INR 1.11 (0.91-1.10)
[2024-03-28 12:25] LABS: Free T4 Free Thyroxine* 1.64 ng/dL (0.70-1.85)
[2024-03-28] MEDS: ONDANSETRON 2 MG/ML inj 4 MG IVP ×3 (12:29→21:05)
[2024-03-28 13:48] LABS: Amphetamine Screen Urine Negative (Negative); Barbiturate Screen Urine Negative (Negative); Benzodiazepines Screen Urine Negative (Negative); Cannabinoid Screen Urine Negative (Negative); Cocaine Screen Urine Negative (Negative); Methadone Screen Urine Negative (Negative); Methamphetamines Screen Urine Negative (Negative); Opiate Screen Urine Negative (Negative); Oxycodone Screen Urine Negative (Negative); Phencyclidine Screen Urine Negative (Negative); Tricyclic Antidepressant Urine Negative (Negative)
[2024-03-28 14:58] LABS: Potassium* 3.6 mmol/L (3.6-5.1)
--- NOTE | 2024-03-28 15:47 | PC.NURSE ---
End of Shift: Patient pleasant and cooperative, A&O. Patient has been slightly tachycardic this shift, all other vitals stable. Patient reports nausea this shift, managed with PRN medication, see MAR. Patient denies pain. Regular diet. SBA
--- NOTE | 2024-03-28 16:03 | PM.IMHP1 ---
Hospitalist- H&P: HPI History of Present Illness Date Seen: 03/28/24 Chief complaint: Poss SVT Narrative: Ganga Blanc is a 48 year old female with history of SVT, essential hypertension and hypothyroidism who presented through the emergency department with concerns of palpitations and racing heart. She has had PSVT in the past which was treated successfully with adenosine. She had an echocardiogram in 2020 which was unremarkable and she tells me that she had a Holter monitor around that same time which was unremarkable. She has never had any history of atrial fibrillation. She has been drinking daily for the last 15 years, at least 3 glasses of whiskey a day, but in the last month and a half she is been dealing with the grief of her elderly dog having to be put down and has noted some depressive symptoms and increase in alcohol use to an unknown amount each day. She noticed recently that she had been drinking quite a bit more than she wanted to and so stopped cold turkey about a week ago. She did not feel very good this week but started feeling better toward the end of the week and had upwards of 3 glasses of whiskey yesterday. This morning at 5:00 a.m. she awoke with racing heart, noted that it was similar to her previous PSVT episodes, and came into the ER when it did not go way after several hours. She had some chest discomfort anteriorly with this that resolved when given the adenosine and the SVT resolved. She denies shortness of breath, lightheadedness, or dizziness. Review of Systems Status of ROS: Reports: 10 or more systems reviewed and unremarkable except as noted in History and below [facility] Medical History (Updated 03/28/24 @ 16:32 by Esthela Rodriges MD) PSVT (paroxysmal supraventricular tachycardia) ?I47.10 - Supraventricular tachycardia, unspecified (ICD-10) Hypothyroidism ?E03.9 - Hypothyroidism, unspecified (ICD-10) Essential hypertension ?I10 - Essential (primary) hypertension (ICD-10) Alcohol use disorder ?F10.90 - Alcohol use, unspecified, uncomplicated (ICD-10) Elevated LFTs ?R79.89 - Other specified abnormal findings of blood chemistry (ICD-10) Surgical History No history of previous surgery Family History Son Liver disease Social History (Updated 03/28/24 @ 16:05 by Esthela Rodriges MD) Narrative: in 2015, currently living with son Guy. Daughter Rajwinder in [place], children would share medical decision making if needed. Full Code. 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 + 1/2ppd smoking, actively working on quitting. ETOH daily (1L/day), actively working on quitting. Denies illicit drug use. What is your current living situation?: I presently have a place to live Problems where you live: no known problems Problems where you live details: none In the past 12 months, utilities in danger of being shut off: no In past 12 months, lack of transportation kept you from medical appts, meetings, work, or getting things needed for daily living: no In the past 12 mos, have been you worried that your food would run out before you had money to buy more?: never true In the past 12 mos, the food you bought just didn't last and you didn't have money to buy more?: never true Highest level of school completed/degree received: Associate degree: occupational, technical, vocational program Smoking Status: Current every day smoker What tobacco products do you use: cigarettes Smoking packs per day: 1 Smoking cigarettes per day: 20.0 Years smoked: 35 Smoking pack-years: 35.00 Do you use any of these nicotine containing products: None How often do you have a drink containing alcohol: 4 or more times a week Alcohol type: hard liquor Alcohol type details: 1 pint linsor daily How many standard drinks containing alcohol do you have on a typical day: 5 or 6 How often do you have six or more drinks on one occasion: Daily or almost daily AUDIT-C Alcohol total score: 10 Non-prescribed substance use: denies use Caffeine: No How often does anyone, including family, friends and others, physically hurt you: never How often does anyone, including family, friends and others, insult or talk down to you: never How often does anyone, including family, friends and others, threaten you with harm: never How often does anyone, including family, friends and others, scream or curse at you: never service: No Meds Home Medications and Allergies Home Medications ?Medication ?Instructions ?Recorded ?Confirmed ?Type chlorthalidone 25 mg tablet 25 mg PO DAILY 03/28/24 03/28/24 History levothyroxine 50 mcg tablet 50 mcg PO DAILY 03/28/24 03/28/24 History losartan 100 mg tablet 100 mg PO DAILY 03/28/24 03/28/24 History omeprazole 20 mg capsule,delayed 20 mg PO DAILY 03/28/24 03/28/24 History release Allergies Allergy/AdvReac Type Severity Reaction Status Date / Time banana Allergy Mild Verified 03/28/24 16:01 Exam Narrative: Exam Narrative: General: No acute distress. Awake alert oriented x3. HEENT: Normocephalic atraumatic, pupils equally round and reactive to light and accommodation. Oropharynx clear. Mucous membranes are moist. No cervical lymphadenopathy, thyromegaly or carotid bruits. No JVD. Cardiovascular: Tachycardia, regular. No murmurs, gallops, or rubs. Chest: No increased work of breathing. Clear to auscultation bilaterally. No crackles or wheezes. Abdomen: Bowel sounds present. Obese. Soft, nondistended, nontender. No hepatosplenomegaly or masses. Extremities: No edema, no cyanosis or clubbing. Skin: No jaundice, no pallor, no rashes. Const: Vital Signs, click to edit/add: Vital Signs - 24 hr 03/28/24 08:36 03/28/24 08:38 03/28/24 08:42 Temperature 97.3 F L Pulse Rate Pulse Rate [Pulse Oximeter] Pulse Rate [Right Pulse Oximeter] 176 H Respiratory Rate 20 16 Blood Pressure Blood Pressure [Le ft Arm] Blood Pressure [Le ft Upper Arm] 128/104 H 111/96 H Pulse Oximetry 93 92 96 Oxygen Delivery Me thod Room Air Room Air 03/28/24 08:45 03/28/24 09:00 03/28/24 09:15 Temperature Pulse Rate Pulse Rate [Pulse Oximeter] Pulse Rate [Right Pulse Oximeter] 174 H 111 H 109 H Respiratory Rate 16 16 16 Blood Pressure Blood Pressure [Le ft Arm] Blood Pressure [Le ft Upper Arm] 125/94 H 128/87 130/89 Pulse Oximetry 95 96 94 Oxygen Delivery Me thod Room Air Room Air Room Air 03/28/24 09:30 03/28/24 09:48 03/28/24 09:49 Temperature Pulse Rate 109 H 107 H Pulse Rate [Pulse Oximeter] Pulse Rate [Right Pulse Oximeter] 112 H Respiratory Rate 16 16 Blood Pressure 112/84 Blood Pressure [Le ft Arm] Blood Pressure [Le ft Upper Arm] 126/81 Pulse Oximetry 95 94 94 Oxygen Delivery Me thod Room Air Room Air 03/28/24 10:00 03/28/24 10:01 03/28/24 10:15 Temperature Pulse Rate 113 H 111 H 109 H Pulse Rate [Pulse Oximeter] Pulse Rate [Right Pulse Oximeter] Respiratory Rate 16 Blood Pressure 129/85 Blood Pressure [Le ft Arm] Blood Pressure [Le ft Upper Arm] Pulse Oximetry 95 95 94 Oxygen Delivery Me thod 03/28/24 10:17 03/28/24 10:30 03/28/24 10:32 Temperature Pulse Rate 107 H 110 H 106 H Pulse Rate [Pulse Oximeter] Pulse Rate [Right Pulse Oximeter] Respiratory Rate 16 16 Blood Pressure 128/87 124/83 Blood Pressure [Le ft Arm] Blood Pressure [Le ft Upper Arm] Pulse Oximetry 93 94 95 Oxygen Delivery Me od 03/28/24 10:59 03/28/24 11:01 03/28/24 11:41 Temperature 97.7 F Pulse Rate Pulse Rate [Pulse Oximeter] 112 H Pulse Rate [Right Pulse Oximeter] Respiratory Rate 18 18 Blood Pressure Blood Pressure [Le ft Arm] 131/91 H Blood Pressure [Le ft Upper Arm] Pulse Oximetry 95 95 95 Oxygen Delivery Me thod Room Air Room Air Hospitalist - H&P: Result Labs Labs: Short CBC 03/28/24 Range/Units 08:40 WBC 11.49 H (4.50-11.00) K/uL Hgb 12.2 (12.0-16.0) gm/dL Hct 35.8 (33.0-51.0) % Plt Count 173 (140-440) K/uL BMP 03/28/24 03/28/24 08:40 14:42 Sodium 140 Potassium 2.6 L* 3.6 Chloride 102 Carbon Dioxide 24 BUN 6 Creatinine 0.5 Glucose 134 H Calcium 8.7 Cardiac Enzymes 03/28/24 Range/Units 08:40 Total Creatine Kinase 27 L (41-117) U/L Troponin I 0.04 (0.01-0.04) ng/mL Liver Function 03/28/24 Range/Units 08:40 Total Bilirubin 2.1 H (0.1-1.5) mg/dL Direct Bilirubin 1.3 H (0.0-0.5) mg/dL GGT 1507 H (8-55) U/L AST 201 H (12-35) U/L ALT 40 H (4-35) U/L Alkaline Phosphatase 316 H (40-150) U/L Albumin 4.2 (3.3-5.0) g/dL 03/28/2024 8:50 a.m. EKG: Sinus tachycardia, heart rate 113 beats per minute, right superior axis deviation, right ventricular hypertrophy, septal infarct, age undetermined. Assessment and Plan Assessment and plan (1) Hypokalemia: Problem comment: - K is quite low at 2.6. Admit overnight for oral replacement and monitoring. Status: Acute (2) SVT (supraventricular tachycardia): Problem comment: - 03/28/24 associated with EtOH use, resolved with adenosine - Resolved Status: Acute (3) Acute alcoholic hepatitis: Status: Acute (4) Alcohol use disorder: Problem comment: - with sequela of elevated LFTs, abnormal electrolytes, last drink 03/27/2024 - Start [facility] protocol - discussed alcoholic hepatitis and and recommended cessation of all alcohol use. Patient states she is agreeable and motivated to do so. - monitor LFTs Status: Acute (5) Hypothyroidism: Problem comment: - free T4 is within normal limits, continue current dose of levothyroxine Status: Chronic (6) Essential hypertension: Problem comment: Hold chlorthalidone due to hypokalemia Status: Chronic
[2024-03-28] MEDS: SODIUM CHLORIDE 0.9 % (FLUSH) 10 ML SYRINGE 5 ML IVF ×2 (17:15→21:08)
[2024-03-28] MEDS: MELATONIN 3 MG TABLET PO (21:09)
[2024-03-29 03:00] VITALS: BP 116/73; PULSE 94; RESP 18; TEMP 36.6; O2SAT 93
--- NOTE | 2024-03-29 05:12 | PC.NURSE ---
Shift note: Pt has been well and independent in room. No withdrawal signs and symptoms observed. HR has been with 90s. Alert and oriented, vitally stable. Pt had adequate sleep. NSR from the tele reading.
[2024-03-29 06:32] LABS: Basophils Percent Auto 0.2 % (0.0-3.0); Eosinophils Percent Auto 1.2 % (0.0-7.0); Hematocrit 30.2 % (33.0-51.0); Immature Granulocytes Pct Auto 0.2 %; Lymphocytes Percent Auto 30.1 % (20-44); Mean Corpuscular HGB Conc 33 gm/dL (32-36); Mean Corpuscular Hemoglobin 35 pg (26-34); Mean Corpuscular Volume 106 fL (80-100); Monocytes Percent Auto 12.6 % (0.0-11.0); Neutrophils Percent Auto 55.7 % (42.0-72.0); Platelet Count* 77 K/uL (140-440); RDW Coefficient of Variation % 16.3 % (11.5-15.5); Red Blood Count 2.85 m/uL (4.00-5.20); White Blood Count* 4.05 K/uL (4.50-11.00)
[2024-03-29 06:34] LABS: Albumin* 3.3 g/dL (3.3-5.0); Chloride* 101 mmol/L (96-114)
[2024-03-29 06:35] LABS: Potassium* 3.1 mmol/L (3.6-5.1); Sodium* 134 mmol/L (135-149)
[2024-03-29 06:37] LABS: Anion Gap 9 mEq/L (7-15); Bilirubin Total* 3.2 mg/dL (0.1-1.5); Carbon Dioxide* 24 mmol/L (20-32); Creatinine* 0.4 mg/dL (0.5-1.5); Est. Creatinine Clearance* 142.28; Estimated Glomerular Filt Rate 122 ml/min
[2024-03-29 06:38] LABS: Alanine Aminotransferase* 35 U/L (4-35); Alkaline Phosphatase* 295 U/L (40-150); Aspartate Amino Transferase* 169 U/L (12-35); Blood Urea Nitrogen* 6 mg/dL (5-24); Calcium* 7.6 mg/dL (8.4-10.6); Glucose* 94 mg/dL (60-115); Total Protein* 6.3 g/dL (6.0-8.3)
[2024-03-29 06:40] LABS: Slide Review Reflex No
--- NOTE | 2024-03-29 08:14 | PM.DS1 ---
DS: Providers Provider Date Seen: 03/29/24 Date of admission: 03/28/24 10:46 Primary care physician: Christine Jeffrey PA-C Admitting Clinician: Esthela Rodriges MD Attending Physician on discharge: Esthela Rodriges MD Date of Discharge: 03/29/24 DS: Diagnosis Discharge Diagnosis (1) Acute alcoholic hepatitis: Status: Acute Problem details: - Labs improving. Recommended avoiding alcohol. F/u with PCP for repeat labs. (2) SVT (supraventricular tachycardia): Status: Acute Problem details: - 03/28/24 associated with EtOH use, resolved with adenosine - Resolved (3) Hypokalemia: Status: Acute Problem details: - 03/28 K is quite low at 2.6. Admit overnight for oral replacement and monitoring. - 03/29 K is 3.1. Replace orally. D/c home. f/u with PCP for recheck labs. (4) Alcohol use disorder: Status: Acute Problem details: - with sequela of elevated LFTs, abnormal electrolytes, last drink 03/27/2024 - Start [facility] protocol - discussed alcoholic hepatitis and and recommended cessation of all alcohol use. Patient states she is agreeable and motivated to do so. - LFTs improving - CIWA score 1. D/c home with gabapentin taper. (5) Hypothyroidism: Status: Chronic Problem details: - free T4 is within normal limits (6) Essential hypertension: Status: Chronic DS: Summary Hospital Course Hospital Course: Ganga Blanc is a 48 year old female with history of SVT, essential hypertension and hypothyroidism who presented through the emergency department with concerns of palpitations and racing heart. She has had PSVT in the past which was treated successfully with adenosine. She had an echocardiogram in 2020 which was unremarkable and she tells me that she had a Holter monitor around that same time which was unremarkable. She has never had any history of atrial fibrillation. She has been drinking daily for the last 15 years, at least 3 glasses of whiskey a day, but in the last month and a half she is been dealing with the grief of her elderly dog having to be put down and has noted some depressive symptoms and increase in alcohol use to an unknown amount each day. She noticed recently that she had been drinking quite a bit more than she wanted to and so stopped cold turkey about a week ago. She did not feel very good this week but started feeling better toward the end of the week and had upwards of 3 glasses of whiskey yesterday. This morning at 5:00 a.m. she awoke with racing heart, noted that it was similar to her previous PSVT episodes, and came into the ER when it did not go way after several hours. She had some chest discomfort anteriorly with this that resolved when given the adenosine and the SVT resolved. She denies shortness of breath, lightheadedness, or dizziness. She was admitted overnight for observation for potassium replacement. She had no evidence of alcohol withdrawal. Her potassium yesterday evening was 3.6 and was 3.1 this morning. I gave her more oral potassium replacement her LFTs are improving. I have discharged her home today in improved condition and have recommended complete abstinence from alcohol. I have prescribed her an outpatient gabapentin taper to help prevent alcohol withdrawal. I would like her to follow-up with her primary care provider later this week for labs and follow-up from the hospital. Time Spent with Patient Time attestation: Total time spent providing and/or coordinating discharge services: Exam Narrative: Exam Narrative: General: No acute distress. Awake alert oriented x3. No tremor. No jaundice, pallor, or diaphoresis. HEENT: Oropharynx clear. Mucous membranes are moist. Cardiovascular: Regular rate and rhythm. No murmurs, gallops, or rubs. Chest: No increased work of breathing. Clear to auscultation bilaterally. No crackles or wheezes. Abdomen: Bowel sounds present. Obese. Soft, nondistended, nontender. No hepatosplenomegaly or masses. Const: Vital Signs, click to edit/add: Vital Signs - 24 hr 03/28/24 08:36 03/28/24 08:38 03/28/24 08:42 Temperature 97.3 F L Pulse Rate Pulse Rate [Pulse Oximeter] Pulse Rate [Right Pulse Oximeter] 176 H Respiratory Rate 20 16 Blood Pressure Blood Pressure [Le ft Arm] Blood Pressure [Le ft Upper Arm] 128/104 H 111/96 H Pulse Oximetry 93 92 96 Oxygen Delivery Me thod Room Air Room Air 03/28/24 08:45 03/28/24 09:00 03/28/24 09:15 Temperature Pulse Rate Pulse Rate [Pulse Oximeter] Pulse Rate [Right Pulse Oximeter] 174 H 111 H 109 H Respiratory Rate 16 16 16 Blood Pressure Blood Pressure [Le ft Arm] Blood Pressure [Le ft Upper Arm] 125/94 H 128/87 130/89 Pulse Oximetry 95 96 94 Oxygen Delivery Me thod Room Air Room Air Room Air 03/28/24 09:30 03/28/24 09:48 03/28/24 09:49 Temperature Pulse Rate 109 H 107 H Pulse Rate [Pulse Oximeter] Pulse Rate [Right Pulse Oximeter] 112 H Respiratory Rate 16 16 Blood Pressure 112/84 Blood Pressure [Le ft Arm] Blood Pressure [Le ft Upper Arm] 126/81 Pulse Oximetry 95 94 94 Oxygen Delivery Me od Room Air Room Air 03/28/24 10:00 03/28/24 10:01 03/28/24 10:15 Temperature Pulse Rate 113 H 111 H 109 H Pulse Rate [Pulse Oximeter] Pulse Rate [Right Pulse Oximeter] Respiratory Rate 16 Blood Pressure 129/85 Blood Pressure [Le ft Arm] Blood Pressure [Le ft Upper Arm] Pulse Oximetry 95 95 94 Oxygen Delivery Me thod 03/28/24 10:17 03/28/24 10:30 03/28/24 10:32 Temperature Pulse Rate 107 H 110 H 106 H Pulse Rate [Pulse Oximeter] Pulse Rate [Right Pulse Oximeter] Respiratory Rate 16 16 Blood Pressure 128/87 124/83 Blood Pressure [Le ft Arm] Blood Pressure [Le ft Upper Arm] Pulse Oximetry 93 94 95 Oxygen Delivery Me thod 03/28/24 10:59 03/28/24 11:01 03/28/24 11:41 Temperature 97.7 F Pulse Rate Pulse Rate [Pulse Oximeter] 112 H Pulse Rate [Right Pulse Oximeter] Respiratory Rate 18 18 Blood Pressure Blood Pressure [Le ft Arm] 131/91 H Blood Pressure [Le ft Upper Arm] Pulse Oximetry 95 95 95 Oxygen Delivery Me od Room Air Room Air 03/28/24 15:00 03/28/24 15:00 03/28/24 15:00 Temperature Pulse Rate 100 Pulse Rate [Pulse Oximeter] 100 Pulse Rate [Right Pulse Oximeter] Respiratory Rate 18 18 Blood Pressure Blood Pressure [Le ft Arm] Blood Pressure [Le ft Upper Arm] Pulse Oximetry 95 Oxygen Delivery Me od Room Air 03/28/24 15:00 03/28/24 19:00 03/28/24 23:00 Temperature 98.5 F 98.1 F Pulse Rate Pulse Rate [Pulse Oximeter] 102 H 99 97 Pulse Rate [Right Pulse Oximeter] Respiratory Rate 18 18 18 Blood Pressure Blood Pressure [Le ft Arm] 122/75 131/79 Blood Pressure [Le ft Upper Arm] Pulse Oximetry 95 97 Oxygen Delivery Tx thod Room Air Room Air 03/28/24 23:00 03/28/24 23:00 03/28/24 23:00 Temperature 98.8 F Pulse Rate 100 Pulse Rate [Pulse Oximeter] 97 Pulse Rate [Right Pulse Oximeter] Respiratory Rate 18 18 Blood Pressure Blood Pressure [Le ft Arm] 124/77 Blood Pressure [Le ft Upper Arm] Pulse Oximetry 93 93 Oxygen Delivery Tx thod Room Air Room Air 03/28/24 23:00 03/29/24 03:00 03/29/24 03:00 Temperature 98.9 F 97.8 F 97.8 F Pulse Rate Pulse Rate [Pulse Oximeter] 94 94 94 Pulse Rate [Right Pulse Oximeter] Respiratory Rate 18 18 18 Blood Pressure Blood Pressure [Le ft Arm] 128/77 116/73 116/73 Blood Pressure [Le ft Upper Arm] Pulse Oximetry 93 93 93 Oxygen Delivery Tx thod Room Air Room Air Room Air DS: Data Data Completed and Pending Labs on day of discharge: Labs from last 24 hours 03/29/24 03/28/24 03/28/24 06:05 14:42 13:34 WBC 4.05 L RBC 2.85 L Hgb 10.0 L Hct 30.2 L MCV 106 H MCH 35 H MCHC 33 RDW Coeff of Iliana 16.3 H Plt Count 77 L Neut % (Auto) 55.7 Lymph % (Auto) 30.1 Calloway % (Auto) 12.6 H Eos % (Auto) 1.2 Baso % (Auto) 0.2 Neut # (Auto) 2.30 Lymph # (Auto) 1.20 Calloway # (Auto) 0.50 Eos # (Auto) 0.00 Baso # (Auto) 0.00 Abs Immat Gran (auto) 0.00 Imm/Tot Granulo (auto) 0.2 INR Sodium 134 L Potassium 3.1 L 3.6 Chloride 101 Carbon Dioxide 24 Anion Gap 9 BUN 6 Creatinine 0.4 L Estimated Creat Clear 142.28 Estimated GFR 122 Glucose 94 Calcium 7.6 L Magnesium Total Bilirubin 3.2 H Direct Bilirubin GGT AST 169 H ALT 35 Alkaline Phosphatase 295 H Total Creatine Kinase Troponin I Total Protein 6.3 Albumin 3.3 TSH Free T4 Urine Opiates Screen Negative Ur Oxycodone Screen Negative Urine Methadone Screen Negative Ur Barbiturates Screen Negative U Tricyclic Antidepress Negative Ur Phencyclidine Scrn Negative Ur Amphetamines Screen Negative U Methamphetamines Scrn Negative U Benzodiazepines Scrn Negative Urine Cocaine Screen Negative U Marijuana (THC) Screen Negative Ur Drug Screen Comment See Note Ethyl Alcohol Lab Acknowledgement 03/28/24 03/28/24 11:55 08:40 WBC 11.49 H RBC 3.45 L Hgb 12.2 Hct 35.8 MCV 104 H MCH 35 H MCHC 34 RDW Coeff of Iliana 15.8 H Plt Count 173 Neut % (Auto) 61.2 Lymph % (Auto) 24.3 Calloway % (Auto) 11.7 H Eos % (Auto) 1.5 Baso % (Auto) 0.5 Neut # (Auto) 7.00 Lymph # (Auto) 2.80 Calloway # (Auto) 1.30 H Eos # (Auto) 0.20 Baso # (Auto) 0.10 Abs Immat Gran (auto) 0.10 Imm/Tot Granulo (auto) 0.8 INR 1.11 H Sodium 140 Potassium 2.6 L* Chloride 102 Carbon Dioxide 24 Anion Gap 14 BUN 6 Creatinine 0.5 Estimated Creat Clear 108.83 Estimated GFR 116 Glucose 134 H Calcium 8.7 Magnesium 1.6 Total Bilirubin 2.1 H Direct Bilirubin 1.3 H GGT 1507 H AST 201 H ALT 40 H Alkaline Phosphatase 316 H Total Creatine Kinase 27 L Troponin I 0.04 Total Protein 7.6 Albumin 4.2 TSH 7.090 H Free T4 1.64 Urine Opiates Screen Ur Oxycodone Screen Urine Methadone Screen Ur Barbiturates Screen U Tricyclic Antidepress Ur Phencyclidine Scrn Ur Amphetamines Screen U Methamphetamines Scrn U Benzodiazepines Scrn Urine Cocaine Screen U Marijuana (THC) Screen Ur Drug Screen Comment Ethyl Alcohol 0.20 H Lab Acknowledgement Test Added Test Added Discharge Plan Discharge Disposition: Home, Self-Care Date of Admission: 03/28/24 10:46 Attending Provider on Discharge: Esthela Rodriges Primary Care Provider: Christine Jeffrey Condition: Stable Anticipated Discharge Date/Time: 03/29/24 10:09 Discharge Medications: New gabapentin 300 mg capsule See Rx Instructions .ROUTE .COMPLEX Qty: 16 0RF Rx Instructions: Day 1: 300 mg every 6 hours scheduled Day 2: 300 mg every 8 hours scheduled Day 3: 300 mg every 12 hours scheduled Day 4: 300 mg at night Also, take 300 mg as needed for symptoms of alcohol withdrawal Continued omeprazole 20 mg capsule,delayed release(DR/EC) 20 mg PO DAILY Discharge Orders: Discharge Order (Routine); Ordered 03/29/24 Ordered By: Esthela Rodriges Patient Education: Gabapentin (By mouth) (Neurontin, FusePaq Fanatrex, [place],..., Abuse of Alcohol (DC), Alcoholic Hepatitis (DC) Additional Instructions: Avoid alcohol Activity Level: No Restrictions Discharge Diet: Regular Follow Up Appointments: Christine Jeffrey PA-C [Primary Care Provider] - 04/02/24 7:30 am ([facility] for follow-up and lab- CBC, CMP.) Forms: [employer] Info Instructions
[2024-03-29] MEDS: POTASSIUM BICARB 25 MEQ EFFERVESCENT TAB PO (08:38)
[2024-03-29] MEDS: FOLIC ACID 1 MG TABLET PO (08:38)
[2024-03-29] MEDS: MULTIVITAMIN/MINERALS 1 TABLET 1 TAB PO (08:38)
[2024-03-29] MEDS: SODIUM CHLORIDE 0.9 % (FLUSH) 10 ML SYRINGE 5 ML IVF (08:42)
[2024-03-29] MEDS: ONDANSETRON 2 MG/ML inj 4 MG IVP (08:42)
[2024-03-29 09:07] VITALS: BP 129/81; PULSE 92; RESP 20; TEMP 36.4; O2SAT 96
[2024-03-29 09:09] VITALS: PULSE 88
--- NOTE | 2024-03-29 12:20 | PC.SOCIAL ---
Addendum entered by MICHAEL Sood 03/31/24 10:09: Discharge planning/late entry: steamtable worker mailed the pt a list of resources for chemical health in [facility] to the address listed on file, [address] [place] [address]. Pt had stated earlier that it was okay for this worker to mail her resources if she was already gone from her room and discharged before this worker returned on 03/29/2024. Social work to follow-up as needed. Original Note: Discharge planning: steamtable worker met with the pt later this morning and asked the pt if she would be interested in resources for inpatient or outpatient chemical dependency programs. Pt stated that she was interested, but she does not currently have health insurance to cover the cost. steamtable worker encouraged pt to call [facility] at #[phone] to ask for a chemical health/Rule 25 assessment with the Chemical Health Income Tax Manager at [facility], as this is a resource for people who do not have health insurance. Pt stated that she would do that this afternoon. steamtable worker then went to print the pt more information with chemical health resources and when this worker came back about ten minutes later the pt had already discharged from the hospital. Social work to follow-up as needed.
--- NOTE | 2024-03-29 12:53 | PC.NURSE ---
Discharge - Pt alert, oriented, cooperative. Up independently in room, tolerating RA. Pt denied pain, reported mild nausea and poor appetite. Observed to vomit once during shift when pt attempted to drink and take a pill. Anti-nausea medication given wit pt reporting improvement. IV removed with catheter intact, d/c education given with pt verbalizing understanding. Pt d/c'd to home via pt arranged taxi service at approximately 1200.
== END 2024-03-29 12:00 | disposition home or self-care (01) ==
LOC: ED 09:25 → MEDSURG 10:47
PROVIDERS: Admitting Provider Family Medicine; Emergency Provider Family Medicine; PCP Physician Assistant Medical; Visit Provider Family Medicine
DX: I47.10 Supraventricular tachycardia, unspecified (principal); E87.6 Hypokalemia; K70.10 Alcoholic hepatitis without ascites; F10.90 Alcohol use, unspecified, uncomplicated; R94.6 Abnormal results of thyroid function studies; R79.89 Other specified abnormal findings of blood chemistry; E03.9 Hypothyroidism, unspecified; K21.9 Gastro-esophageal reflux disease without esophagitis; I10 Essential (primary) hypertension; F17.210 Nicotine dependence, cigarettes, uncomplicated
CPT/HCPCS: 36415; 80048; 80053; 80076; 80306; 82077; 82550; 82977; 83735; 84132; 84439; 84443; 84484; 85025; 85610; 93005; 94761; 99285; 99291; G0378; A9153; A9270; J0153; J2405; J3475; J7030; J7120

== ENCOUNTER 2024-06-10 10:09 | Emergency (ER) | payer OTHER, SELFPAY ==
[2024-06-10] VITALS (9 sets, daily range): BP systolic 96–124; BP diastolic 59–85; PULSE 95–184; RESP 16–26; TEMP 36.2; O2SAT 96–99; BMI 22.7
[2024-06-10] MEDS: ADENOSINE 6 MG/2ML INJ IVP (10:29)
--- NOTE | 2024-06-10 10:29 | CRLHL7_ITS ---
For Patients: As a result of the Century Cures Act, medical imaging exams and procedure reports are released immediately into your electronic medical record. You may view this report before your referring provider. If you have questions, please contact your health care provider. Indication: Chest pain Technique: Chest 1 view Comparison: Chest x-ray 04/02/2021 Findings/Impression: Cardiovascular and mediastinum: Normal heart size with mild aortic tortuosity and atherosclerotic calcification. Lungs and pleural space: Lungs are clear. No sign of infiltrate or mass. No sign of pleural effusion. No pneumothorax. Bones and soft tissues: No acute findings. Dictated by Hank Boo MD @ 06/10/2024 11:13:27 AM (Electronically Signed)
--- NOTE | 2024-06-10 10:29 | ED.GENADULT ---
HPI - General Adult General Time Seen by Provider: 10: Date Seen: 06/10/24 Chief complaint: Arrhythmia/Palpitations Stated complaint: racing heart hx of SVT Time Seen by Provider: 06/10/24 10:29 Source: patient Mode of arrival: ambulatory Limitations: no limitations History of Present Illness HPI narrative: Ganga is a very pleasant 48-year-old female with a history of SVT, past history of alcohol use and hypokalemia who comes to the emergency room with a rapid heart rate. Patient states that she awoke with her heart going fairly fast. This is the 4th time it has happened in the last 4 years. The most previous time was in March. At that time it was thought to be related to alcohol use. She has not used any alcohol since that time. Her LFTs which had been running high have improved as well per her report. She uses minimal to moderate amount of caffeine. She has not been ill. She tried coughing at home and deep breathing min unfortunately it did not work. Patient endorses some chest pain. She is remarkably calm. She has not had unusual cough, history of DVT, lower extremity edema recent fever or exposures to illness or COVID. Related Data Home Medications ?Medication ?Instructions ?Recorded ?Confirmed omeprazole 20 mg capsule,delayed 20 mg PO DAILY 03/28/24 03/28/24 release Previous Rx's ?Medication ?Instructions ?Recorded gabapentin 300 mg capsule See Rx Instructions .Route 03/29/24 .COMPLEX alcohol withdrawal #16 caps diltiazem HCl 120 mg tablet 120 mg PO DAILY #30 tabs 06/10/24 (Cardizem) Allergies Allergy/AdvReac Type Severity Reaction Status Date / Time banana Allergy Mild Verified 03/28/24 16:01 Review of Systems Status of ROS: Reports: 10 or more systems reviewed and unremarkable except as noted in History and below Const: Denies: fever, chills or fatigue Eyes: Denies: change in vision ENMT: Denies: throat pain, neck pain, throat swelling or nasal congestion Cardio: Reports: chest pain and palpitations; Denies: edema, swelling of feet/ankles, lightheadedness or shortness of breath with exertion Resp: Denies: shortness of breath or cough GI: Denies: abdominal pain, nausea or vomiting : Denies: painful urination Musculo: Denies: neck pain Integ/Breast: Denies: rash Neuro: Denies: headache Endo: Denies: fatigue Allergy/Immuno: Denies: throat swelling PFSH PFSH Medical History PSVT (paroxysmal supraventricular tachycardia) ?I47.10 - Supraventricular tachycardia, unspecified (ICD-10) Hypothyroidism ?E03.9 - Hypothyroidism, unspecified (ICD-10) Essential hypertension ?I10 - Essential (primary) hypertension (ICD-10) Alcohol use disorder ?F10.90 - Alcohol use, unspecified, uncomplicated (ICD-10) Elevated LFTs ?R79.89 - Other specified abnormal findings of blood chemistry (ICD-10) Surgical History No history of previous surgery Family History Son Liver disease Social History Narrative: in 2014, currently living with son Guy. Daughter Rajwinder in [place], children would share medical decision making if needed. Full Code. 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 + 1/2ppd smoking, actively working on quitting. ETOH daily (1L/day), actively working on quitting. Denies illicit drug use. What is your current living situation?: I presently have a place to live Problems where you live: no known problems Problems where you live details: none In the past 12 months, utilities in danger of being shut off: no In past 12 months, lack of transportation kept you from medical appts, meetings, work, or getting things needed for daily living: no In the past 12 mos, have been you worried that your food would run out before you had money to buy more?: never true In the past 12 mos, the food you bought just didn't last and you didn't have money to buy more?: never true Highest level of school completed/degree received: Associate degree: occupational, technical, vocational program Smoking Status: Current every day smoker What tobacco products do you use: cigarettes Smoking packs per day: 1 Smoking cigarettes per day: 20.0 Years smoked: 35 Smoking pack-years: 35.00 Do you use any of these nicotine containing products: None How often do you have a drink containing alcohol: never AUDIT-C Alcohol total score: 0 Non-prescribed substance use: denies use Caffeine: No How often does anyone, including family, friends and others, physically hurt you: never How often does anyone, including family, friends and others, insult or talk down to you: never How often does anyone, including family, friends and others, threaten you with harm: never How often does anyone, including family, friends and others, scream or curse at you: never service: No Exam Narrative: Exam Narrative: Alert and oriented. Somewhat tachypneic. Unusually calm. Eyes are clear oral cavity with moist mucous membranes. Face symmetrical. Heart with a tachycardic rate in the 170s. Regular rhythm. Lungs are clear bilaterally. Abdomen soft no pulsating mass. No tenderness. Lower extremities with no evidence of acute edema or calf tenderness. Ambulated without difficulty into room 6. Const: Vital Signs, click to edit/add: Vital Signs - 24 hr 06/10/24 10:17 06/10/24 10:18 06/10/24 10:31 Temperature Pulse Rate 178 H 172 H 100 Pulse Rate [Pulse Oximeter] Respiratory Rate Blood Pressure 96/72 123/85 Blood Pressure [Le ft Upper Arm] Pulse Oximetry 98 96 99 06/10/24 10:32 06/10/24 10:33 06/10/24 10:38 Temperature 97.1 F L Pulse Rate 98 103 H Pulse Rate [Pulse Oximeter] 184 H Respiratory Rate 26 H Blood Pressure 112/81 Blood Pressure [Le ft Upper Arm] 96/59 L Pulse Oximetry 99 99 98 06/10/24 10:45 06/10/24 11:01 06/10/24 11:32 Temperature Pulse Rate 95 Pulse Rate [Pulse Oximeter] Respiratory Rate 16 Blood Pressure 124/84 110/78 Blood Pressure [Le ft Upper Arm] Pulse Oximetry 99 Documenting provider has reviewed patient's vital signs: yes Course Course ED Course: Differential diagnosis includes but is not limited to SVT, AFib with RVR, other narrow complex tachycardia, underlying illness, PE. At this time patient has responded very well to adenosine in the past. In the room IV was established, EKG done which showed a narrow complex tachycardia. Suspected SVT. 6 mg IV adenosine given. Patient responded very well and she is now in a sinus rhythm around 100. Blood pressures remained stable during this time. Patient is feeling much better. Will also get labs to include CBC, comprehensive panel, magnesium, TSH. Chest x-ray, EKG, cardiac monitoring, oximetry has also been ordered. Reevaluation(s) Reevaluation #1: Patient continues to be in a sinus rhythm with heart rate between 98 and 102. Her subjective symptoms have resolved. Laboratory values are reassuring with the exception of potassium which is low at 3.0. Fifty mEq p.o. potassium ordered for this patient. Currently awaiting cardiac consult. Vital Signs Vital signs: Initial Vital Signs Pulse Rate 178 H 06/10/24 10:17 Blood Pressure 96/72 06/10/24 10:17 Blood Pressure Mean 80 06/10/24 10:17 Pulse Oximetry 98 06/10/24 10:17 Vital Signs Pulse Rate 178 H 06/10/24 10:17 Blood Pressure 96/72 06/10/24 10:17 Pulse Oximetry 98 06/10/24 10:17 Temperature 97.1 F L 06/10/24 10:38 Pulse Rate 95 06/10/24 10:45 Respiratory Rate 16 06/10/24 11:32 Blood Pressure 110/78 06/10/24 11:32 Pulse Oximetry 99 06/10/24 10:45 Medications Administered Medications: Discontinued Medications Generic Name Dose Route Start Last Admin Trade Name Freq PRN Reason Stop Dose Admin Adenosine 6 mg 06/10/24 10:29 06/10/24 10:29 Adenosine 6 Mg/2ml Inj IVP 06/10/24 10:30 6 mg ONCE ONE Administration Sodium Chloride 500 mls @ 500 mls/hr 06/10/24 10:29 06/10/24 11:25 0.9 % Sodium Chloride 500 Ml IV 06/10/24 11:28 Infused .Q1H ONE Infusion Potassium Bicarbonate 50 meq 06/10/24 11:30 06/10/24 11:53 Potassium Bicarb 25 Meq Effervescent Tab PO 06/10/24 11:31 50 meq ONCE ONE Administration Medical Decision Making MDM Narrative Medical decision making narrative: 1. SVT-resolved after 1 dose of adenosine 6 mg. Patient received IV fluids, laboratory check, has remained in sinus rhythm and symptoms are resolved. Magnesium 1.9, potassium 3.0, troponin within normal limits. TSH is currently pending. I had the pleasure of speaking with Dr. Estrada airport operations duty manager at [facility]. At this time patient does have systolic blood pressure of 110. Would suggest the use of diltiazem 120 mg daily for rate control. Also suggest follow-up with Cardiology for discussion regarding possible ablation. 2. Hypokalemia-50 mEq potassium ordered. Recheck 3. History of elevated LFTs- resolution of elevated of LFTs. Patient has not been drinking for the past 2 and half months. She is very excited about this results. 4. Disposition -home at this time. Stay well-hydrated. Return as needed for worsening symptoms. Medical Records Medical records reviewed: Yes I reviewed the patient's medical records Lab Data Lab results reviewed: Yes I reviewed the patient's lab results Labs: Lab Results 06/10/24 06/10/24 Range/Units 10:20 10:29 WBC 10.83 (4.50-11.00) K/uL RBC 3.95 L (4.00-5.20) m/uL Hgb 12.2 (12.0-16.0) gm/dL Hct 37.4 (33.0-51.0) % MCV 95 (80-100) fL MCH 31 (26-34) pg MCHC 33 (32-36) gm/dL RDW Coeff of Iliana 12.3 (11.5-15.5) % Plt Count 165 (140-440) K/uL Neut % (Auto) 56.1 (42.0-72.0) % Lymph % (Auto) 33.3 (20-44) % Toombs % (Auto) 7.1 (0.0-11.0) % Eos % (Auto) 3.0 (0.0-7.0) % Baso % (Auto) 0.3 (0.0-3.0) % Neut # (Auto) 6.08 (1.7-7.0) K/uL Lymph # (Auto) 3.61 H (0.90-2.90) K/uL [place]ombs # (Auto) 0.80 (0.00-0.90) K/UL Eos # (Auto) 0.32 (0.00-0.50) K/uL Baso # (Auto) 0.03 (0.00-0.30) K/uL Abs Immat Gran (auto) 0.02 (0.00-0.30) K/uL Imm/Tot Granulo (auto) 0.2 % Sodium 137 (135-149) mmol/L Potassium 3.0 L (3.6-5.1) mmol/L Chloride 104 (96-114) mmol/L Carbon Dioxide 21 (20-32) mmol/L Anion Gap 12 (7-15) mEq/L BUN 6 (5-24) mg/dL Creatinine 0.6 (0.5-1.5) mg/dL Estimated Creat Clear 86.53 Estimated GFR 111 ml/min Glucose 116 H (60-115) mg/dL Calcium 10.0 (8.4-10.6) mg/dL Magnesium 1.9 (1.5-2.6) mg/dL Total Bilirubin 0.8 (0.1-1.5) mg/dL AST 36 H (12-35) U/L ALT 15 (4-35) U/L Alkaline Phosphatase 141 (40-150) U/L Total Protein 7.8 (6.0-8.3) g/dL Albumin 4.1 (3.3-5.0) g/dL POC Troponin I 0.02 (0.01-0.04) ng/ml Imaging Data Chest x-ray: Attestation: I have reviewed the pertinent imaging results. My impression: No evidence of widened mediastinum or infiltrate. Radiologist's impression: Cardiovascular and mediastinum: Normal heart size with mild aortic tortuosity and atherosclerotic calcification. Lungs and pleural space: Lungs are clear. No sign of infiltrate or mass. No sign of pleural effusion. No pneumothorax. Bones and soft tissues: No acute findings. ECG Data Attestation: I personally reviewed and interpreted this ECG as follows: Interpretation: EKG 1. By my read shows narrow complex tachycardia at a rate of 173. Subtle ST depression noted in in the anterior leads. EKG 2. By my read shows sinus tachycardia at a rate of 105. No evidence of ST or T-wave changes. QT and [place] intervals within normal limits. Critical Care Time Critical Care Time Critical Care Time: Yes Attestation: The patient required my highest level preparedness to intervene emergently and I personally spent this critical care time directly and personally managing the patient. This critical care time included: Obtaining a history; Examining the patient; Pulse oximetry; Ordering and reviewing of studies; Arranging urgent treatment with development of a management plan; Evaluation of patients response to treatment; Frequent reassessment discussions with other providers. This critical care time was performed to assess and manage the high probability of imminent life-threatening deterioration that could result in multiorgan failure. It was exclusive of separate billable procedures and treating other patients and teaching time. Total Critical Care Time in Minutes: 30 Discharge Plan Discharge Clinical Impression: Sustained SVT, Hypokalemia Patient Disposition: Home, Self-Care Condition: Improved Additional Instructions: Start Cardizem 120 mg daily. This will slow your heartbeat down. Monitor your blood pressure to ensure it does not go too low or that you feel lightheaded or dizzy. Follow-up for a recheck of your potassium next week. Would also see suggest consultation with Cardiology which your primary care clinic can set you up with. You may need an ablation to prevent further episodes of SVT. Return to the emergency room as needed. Prescriptions: New diltiazem HCl [Cardizem] 120 mg tablet 120 mg PO DAILY Qty: 30 0RF No Action omeprazole 20 mg capsule,delayed release(DR/EC) 20 mg PO DAILY gabapentin 300 mg capsule See Rx Instructions .ROUTE .COMPLEX Qty: 16 0RF Rx Instructions: Day 1: 300 mg every 6 hours scheduled Day 2: 300 mg every 8 hours scheduled Day 3: 300 mg every 12 hours scheduled Day 4: 300 mg at night Also, take 300 mg as needed for symptoms of alcohol withdrawal Follow Up/Referrals: Christine Jeffrey PA-C [Primary Care Provider] - Stand Alone Forms: [employer] Mobile Info Instructions
[2024-06-10 10:43] LABS: Basophils Absolute Auto 0.03 K/uL (0.00-0.30); Basophils Percent Auto 0.3 % (0.0-3.0); Eosinophils Absolute Auto 0.32 K/uL (0.00-0.50); Hematocrit 37.4 % (33.0-51.0); Hemoglobin* 12.2 gm/dL (12.0-16.0); Immature Granulocytes Abs Auto 0.02 K/uL (0.00-0.30); Immature Granulocytes Pct Auto 0.2 %; Lymphocytes Absolute Auto 3.61 K/uL (0.90-2.90); Lymphocytes Percent Auto 33.3 % (20-44); Mean Corpuscular HGB Conc 33 gm/dL (32-36); Mean Corpuscular Hemoglobin 31 pg (26-34); Mean Corpuscular Volume 95 fL (80-100); Monocytes Percent Auto 7.1 % (0.0-11.0); Neutrophils Absolute Auto 6.08 K/uL (1.7-7.0); Neutrophils Percent Auto 56.1 % (42.0-72.0); Platelet Count* 165 K/uL (140-440); RDW Coefficient of Variation % 12.3 % (11.5-15.5); Red Blood Count 3.95 m/uL (4.00-5.20); White Blood Count* 10.83 K/uL (4.50-11.00)
[2024-06-10] MEDS: 0.9 % SODIUM CHLORIDE 500 ML 500 ML IV (10:52)
[2024-06-10 10:54] LABS: Slide Review Reflex No
[2024-06-10 10:57] LABS: Troponin, Point-of-Care* 0.02 ng/ml (0.01-0.04)
[2024-06-10 11:03] LABS: Albumin* 4.1 g/dL (3.3-5.0); Chloride* 104 mmol/L (96-114); Sodium* 137 mmol/L (135-149)
[2024-06-10 11:06] LABS: Alkaline Phosphatase* 141 U/L (40-150); Anion Gap 12 mEq/L (7-15); Aspartate Amino Transferase* 36 U/L (12-35); Bilirubin Total* 0.8 mg/dL (0.1-1.5); Blood Urea Nitrogen* 6 mg/dL (5-24); Carbon Dioxide* 21 mmol/L (20-32); Creatinine* 0.6 mg/dL (0.5-1.5); Est. Creatinine Clearance* 86.53; Estimated Glomerular Filt Rate 111 ml/min; Glucose* 116 mg/dL (60-115); Total Protein* 7.8 g/dL (6.0-8.3)
[2024-06-10 11:07] LABS: Alanine Aminotransferase* 15 U/L (4-35); Magnesium* 1.9 mg/dL (1.5-2.6)
[2024-06-10] MEDS: POTASSIUM BICARB 25 MEQ EFFERVESCENT TAB 50 MEQ PO (11:53)
== END 2024-06-10 12:30 | disposition home or self-care (01) ==
PROVIDERS: Emergency Provider Family Medicine; PCP Physician Assistant Medical
DX: I47.10 Supraventricular tachycardia, unspecified (principal); E87.6 Hypokalemia
CPT/HCPCS: 36415; 71045; 80053; 83735; 84439; 84443; 84484; 85025; 93005; 96374; 99284; 99285; 99291; A9270; J0153; J7030

== ENCOUNTER 2025-02-17 21:20 | Outpatient (CLI) | payer OTHER, SELFPAY ==
--- OUTSIDE RECORDS SUMMARY | 2025-02-22 01:46 | XMS_ITS | Clinical Summary ---
Author Organization [facility] Address [address] [place] [address] Care Team Providers Care Religious Healer Name Role Phone Christine Jeffrey Primary Care Provider Allergies Active Allergy Reactions Criticality Noted Date Comments Lisinopril Cough 02/09/2021 Medications levothyroxine (SYNTHROID) 50 mcg tabletIndicati ons:Hypothyroi dism (acquired) Take 1 Tablet (50 mcg) by mouth once daily. BEFORE BREAKFAST 90 Tablet 04/21/20 24 Active multivitamin tablet Take 1 Tablet by mouth once daily. Active pantoprazole 40 mg delayed-releas e tabletIndicati ons:Alcoholic hepatitis without ascites (HC) Take 1 Tablet (40 mg) by mouth once daily. 60 Tablet 2 02/20/2025 10:08 AM CDT 02/21/20 25 Active omeprazole 20 mg tabletIndicati ons:Nausea Take 1 Tablet (20 mg) by mouth once daily before a meal. 90 Tablet 3 11/03/19 24 025 Discontinued( Pharmacist change per medication history (E-cancel not sent)) chlorthalidone (HYGROTON) 25 mg tabletIndicati ons:HTN (hypertension) Take 1 Tablet (25 mg) by mouth once daily. 30 Tablet 11/14/19 24 025 Discontinued( Pharmacist change per medication history (E-cancel not sent)) gabapentin (NEURONTIN) 300 mg capsuleIndicat ions:Alcohol dependence in remission (HC) Take 1 Capsule (300 mg) by mouth at bedtime. 30 Capsule 5 04/19/20 24 025 Discontinued( Pharmacist change per medication history (E-cancel not sent)) potassium chloride (KLOR-CON M20) 20 mEq extended-relea se tablet (part/cryst)In dications:Hypo kalemia TAKE ONE TABLET BY MOUTH EVERY DAY 15 Tablet 07/27/20 24 025 Discontinued( Pharmacist change per medication history (E-cancel not sent)) Active Problems Problem Noted Date Diagnosed Date Hemorrhagic shock 02/18/2025 GIB (gastrointestinal bleeding) 02/18/2025 Alcohol use disorder 02/18/2025 Alcoholic hepatitis without ascites 02/18/2025 Paroxysmal SVT (supraventricular tachycardia) SVT (supraventricular tachycardia) 10/30/2021 Unspecified hypothyroidism 03/10/2009 Encounters Date Type Department Care Team Description 5 Patient Outreach [facility] [address] [place] [address] Adore Boss, RN Primary RN Care Management; Hospital F/U (Lace=43) 5 Travel 5 12:25 PM CDT - 5 12:59 PM CDT Surgery [facility] [address] [place] [address] Jacky Billings MD ESOPHAGOGASTRODUODENOSCOPY WITH BIOPSY 5 1:22 AM CDT - 5 1:30 PM CDT Hospital Encounter [facility] [address] [place] [address] Amie Miller MD Paz, Francisco Miguel, MD Masood, Adnan, MBBS Techar, Kristina May, MD [facility], w Hospitalists Of Alcoholic hepatitis without ascites (HC) (Primary Dx) Discharge Disposition: Home Self Care from Last 3 Months Immunizations Immunization Administration Dates Next Due COVID-19 vaccine ([employer] 30mcg/0.3mL) 12YO+ FAVIOLA-SUCROSE RAMBO CAREY 06/05/2022 Family History Medical History Relation Name [...] or isolated from those around you? 0 02/20/2025 Financial Resource Strain Answer Date R ecorded Difficulty of Paying Living Expenses 1 02/20/2025 Difficulty of Paying Living Expenses 2 02/20/2025 Food Insecurity Answer Date Recorded Do you worry your food will run out before you are able to buy more? 1 02/20/2025 Transportation Needs Answer Date Record ed Does lack of transportation keep you from medica l appointments? 1 02/20/2025 Does lack of transportation keep you from work, meetings or getting things that you need? 1 02/20/2025 Housing Stability Answer Date Recorded What is your housing situation today? 1 02/20/2025 Interpersonal Safety Answer Date Record ed Are you being hit, kicked, p ushed or yelled at (see row info)? No 02/20/2025 Interpersonal Safety Abuse 12 - 18 Not on file 02/20/2025 Interpersonal Safety Ambulatory Vulnerability No t on file 02/20/2025 Utilities Answer Date Recorded Do you have trouble paying f or utilities (for example, heat, electricity, water, phone)? 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 Not on file Not on file Obstetrics History Last Filed Vital Signs Vital Sign Reading Time Taken Comments Blood Pressure 132/75 02/20/2025 8:59 AM CDT Pulse 79 02/20/2025 8:59 AM CDT Temperature 37.1 C (98.7 F) 02/20/2025 8:59 AM CDT Respiratory Rate 16 02/20/2025 8:59 AM CDT Oxygen Saturation 93% 02/20/2025 8:59 AM CDT Inhaled Oxygen Concentration - - Weight 53.9 kg (118 lb 13.3 oz) 02/18/2025 2:15 AM CDT Height 160 cm (5' 2.99) 02/18/2025 2:15 AM CDT Body Mass Index 21.05 02/18/2025 2:15 AM CDT Plan of Treatment Health Maintenance Due [...] Procedure Name Priority Date/Time Associated Diagnosis Comments GLUCOSE METER Timed 02/20/2025 6:26 AM CDT BASIC METABOLIC PANEL Early AM 02/20/2025 6:07 AM CDT HEMOGLOBIN Early AM 02/20/2025 6:07 AM CDT MAGNESIUM Early AM 02/20/2025 6:07 AM CDT HEMOGLOBIN Today 02/19/2025 10:09 PM CDT HEMOGLOBIN Today 02/19/2025 3:22 PM CDT RBC W/O TYPE & SCREEN STAT 02/19/2025 11:59 AM CDT GLUCOSE METER Timed 02/19/2025 11:45 AM CDT SCAN-CARDIAC STRIP 02/19/2025 7:00 AM CDT MAGNESIUM Early AM 02/19/2025 5:30 AM CDT LACTATE VENOUS Timed 02/19/2025 5:30 AM CDT HEMOGLOBIN Today 02/19/2025 5:30 AM CDT POTASSIUM Early AM 02/19/2025 5:30 AM CDT GLUCOSE METER Timed 02/19/2025 2:21 AM CDT LACTATE VENOUS Timed 02/18/2025 11:08 PM CDT HEMOGLOBIN Today 02/18/2025 11:08 PM CDT SCAN-CARDIAC STRIP 02/18/2025 11:[address] ABDOMEN PELVIS W Routine 02/18/2025 8:00 PM CDT TRANSFUSE RBC (NURSE COMMUNICATION ORDER) STAT 02/18/2025 5:19 PM CDT RBC W/O TYPE & SCREEN Today 02/18/2025 4:57 PM CDT RED BLOOD CELLS EA UNIT Today 02/19/20 4:54 PM CDT MAGNESIUM Timed 02/18/2025 4:03 PM CDT LACTATE VENOUS Timed 02/18/2025 4:03 PM CDT HEMOGLOBIN Timed 02/18/2025 4:03 PM CDT GLUCOSE METER Timed 02/18/2025 2:23 PM CDT PATH TISSUE EXAM Today 02/18/2025 1:44 PM CDT POTASSIUM Timed 02/18/2025 1:42 PM CDT ENDOSCOPY 02/18/2025 12:58 PM CDT ESOPHAGOGASTRODUODENOSCOPY W ITH BIOPSY 02/18/2025 12:40 PM CDT See MD procedure note HEMOGLOBIN STAT 02/18/2025 8:42 AM CDT LACTATE VENOUS Timed 02/18/2025 8:42 AM CDT SCAN-CARDIAC STRIP 02/18/2025 7:05 AM CDT GLUCOSE METER Timed 02/18/2025 6:54 AM CDT TRANSFUSE RBC (NURSE COMMUNICATION ORDER) STAT 02/18/2025 6:39 AM CDT RBC W/O TYPE & SCREEN STAT 02/18/2025 6:30 AM CDT RED BLOOD CELLS EA UNIT STAT 02/19/20 6:29 AM CDT MAGNESIUM JOHN 02/18/2025 5:30 AM CDT LACTATE VENOUS Timed 02/18/2025 5:30 AM CDT BASIC METABOLIC PANEL Early AM 02/18/2025 5:30 AM CDT PROTIME-INR Early AM 02/18/2025 5:30 AM CDT HEPATIC FUNCTION PANEL Early AM 5:30 AM CDT TSH Early AM 02/18/2025 5:30 AM CDT HEMOGLOBIN Timed 02/18/2025 5:30 AM CDT US ABDOMEN LIMITED RUQ PORTABLE Routine 02/18/2025 5:03 AM CDT EKG 12 LEAD Routine 02/18/2025 4:14 AM CDT TRANSFUSE RBC (NURSE COMMUNICATION ORDER) STAT 02/18/2025 4:05 AM CDT RBC W/O TYPE & SCREEN STAT 02/18/2025 2:35 AM CDT RED BLOOD CELLS EA UNIT STAT 02/19/20 2:07 AM CDT TYPE & SCREEN Today 02/18/2025 2:07 AM CDT CBC WITH AUTO DIFFERENTIAL STAT 02/18 2:07 AM CDT LACTATE VENOUS Timed 02/18/2025 2:07 AM CDT CBC WITH AUTO DIFFERENTIAL STAT 02/18 2:07 AM CDT GLUCOSE METER Timed 02/18/2025 1:42 AM CDT LIPID PANEL W REFLEX MEASURE D LDL Routine 11/19/2021 1:44 PM CDT HTN (hypertension) XR MAMMO MERLY BILAT DIAG Routine 021 2:27 PM CDT Lump of right breast RN PICU THIN PREP PAP SCREEN IMAGED Routine 01/16/2021 3:35 PM CDT Screening for cervical cancer ANTI HIV 1/2 Routine 09/01/2008 2:45 PM 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 GLUCOSE METER 121(H) 65 - 100 mg/dL 02/20/2025 6:27 AM CDT [facility] Blood BLOOD SPECIMEN / Unknown 02/20/2025 6:26 AM CDT 02/20/2025 6:27 AM CDT Allison Mota MD CHEMISTRY Final Res ult Performing Organization Address City/[facility] Co de Phone Number [facility] [address] [place] [address], * (ABNORMAL) Hemoglobin AM (02/20/2025 6:07 AM CDT) Only the most recent of8 resultswithin the time period is included. HEMOGLOBIN 9.2(L) 12.0 - 16.0 g/dL 02/20/2025 6:25 AM CDT [facility] MCV 86 80 - 100 fL 02/20/2025 6:25 AM CDT [facility] Blood BLOOD SPECIMEN / Unknown Venipuncture / Unknown 02/20/2025 6:07 AM CDT 02/20/2025 6:19 AM CDT Allison Mota MD HEMATOLOGY Final Res ult [facility] [address] [place] [address], * MAGNESIUM (02/20/2025 6:07 AM CDT) Only the most recent of4 resultswithin the time period is included. MAGNESIUM 1.9 1.6 - 2.6 mg/dL 02/20/2025 6:59 AM CDT [facility] Blood BLOOD SPECIMEN / Unknown Venipuncture / Unknown 02/20/2025 6:07 AM CDT 02/20/2025 6:19 AM CDT us Sam Ware MD CHEMISTRY Final Re sult [facility] [address] [place] [address], [place] * (ABNORMAL) Basic metabolic panel AM (02/20/2025 6:07 AM CDT) Only the most recent of2 resultswithin the time period is included. SODIUM 136 136 - 145 mmol/L 02/20/2025 6:59 AM CDT [facility] POTASSIUM 3.3(L) 3.5 - 5.1 mmol/L 02/20/2025 6:59 AM CDT [facility] CHLORIDE 107 98 - 107 mmol/L 02/20/2025 6:59 AM CDT [facility] CO2,TOTAL 19(L) 22 - 29 mmol/L 02/20/2025 6:59 AM CDT [facility] ANION GAP 10 5 - 18 02/20/2025 6:59 AM CDT [facility] GLUCOSE 118(H) 70 - 99 mg/dL 02/20/2025 6:59 AM CDT [facility] CALCIUM 7.7(L) 8.8 - 10.4 mg/dL 02/20/2025 6:59 AM T [facility] Comment: Reference ranges for this test were updated on 06/29/2024 to reflect our healthy population more accurately. Reference range changes are not retroactively applied to results, but previous results using the same methodology can be interpreted in the context of the new reference range. BUN 9 6 - 20 mg/dL 02/20/2025 6:59 AM CDT [facility] CREATININE 0.71 0.50 - 0.90 mg/dL 02/20/2025 6:59 AM CDT [facility] BUN/CREAT RATIO 13 10 - 20 6:59 AM CDT [facility] eGFR >90 >90 mL/min/1. 73m2 02/20/2025 6:59 AM CDT [facility] Comment:As of 2021, eG FR is calculated by the CKD-EPI creatinine equation without race adjustment. eGFR can be influenced by muscle mass, exercise, and diet. The reported eGFR is an estimation only and is only applicable if the renal function is stable. Blood BLOOD SPECIMEN / Unknown Venipuncture / Unknown 02/20/2025 6:07 AM CDT 02/20/2025 6:19 AM CDT us Allison Mota MD CHEMISTRY Final Res ult [facility] [address] [place] [address], * RBC W/O TYPE & SCREEN (02/19/2025 11:59 AM CDT) Only the most recent of4 resultswithin the time period is included. QUANTITY 1 02/19/2025 11:59 AM CDT [facility] Blood BLOOD SPECIMEN / Unknown 02/18/2025 6:17 AM CDT us Amie Miller MD BLOOD BANK Fin al Result [facility] [address] [place] [address], [place] [phone] * SCAN-CARDIAC STRIP (02/19/2025 7:00 AM CDT) us Scanner OTHER Final Result * LACTATE VENOUS (02/19/2025 5:30 AM CDT) Only the most recent of6 resultswithin the time period is included. LACTATE,VENOUS 1.0 0.5 - 2.0 mmol/L 02/19/2025 6:17 AM CDT [facility] Blood BLOOD SPECIMEN / Unknown Venipuncture / Unknown 02/19/2025 5:30 AM CDT 02/19/2025 5:50 AM CDT us Jammie Toussaint RN CHEMISTRY Final Result Performing Organization Address City/[facility]/ZIP Co de Phone Number [facility] [address] [place] [address], * POTASSIUM (02/19/2025 5:30 AM CDT) Only the most recent of2 resultswithin the time period is included. Pathologist [facility] POTASSIUM 3.9 3.5 - 5.1 mmol/L 02/19/2025 6:17 AM CDT [facility] Blood BLOOD SPECIMEN / Unknown Venipuncture / Unknown 02/19/2025 5:30 AM CDT 02/19/2025 5:50 AM CDT Sam Ware MD CHEMISTRY Final Re sult Performing Organization Address [facility] Co de Phone Number [facility] [address] [place] [address], [place] * SCAN-CARDIAC STRIP (02/18/2025 11:05 PM CDT) us Scanner OTHER Final Result * CT ABDOMEN PELVIS W (02/18/2025 8:00 PM CDT) Anatomical Region Laterality Modality Abdomen, Pelvis, AORTA, LIVER, SPLEEN Computed Tomography 02/18/2025 11:1 3 PM CDT Impressions 02/18/2025 11:13 PM CDT 1. Gastric varices. 2. No other stigmata of portal hypertension. Patent SMV and portal veins. 3. Severe diffuse hepatic steatosis. 4. Cholelithiasis. Please note that all CT scans at this facility use dose modulation, iterative reconstruction, and/or weight-based dosing when appropriate to reduce radiation dose to as low as reasonably achievable. Dictated by Lc Whelan MD @ 02/18/2025 11:13:48 PM (Electronically Signed) Narrative 02/18/2025 11:13 PM CDT For Patients: As a result of the Cures Act, medical imaging exams and procedure reports are released immediately into your electronic medical record. You may view this report before your referring provider. If you have questions, please contact your health care provider. INDICATION: Gastric varices. TECHNIQUE: CT abdomen and pelvis acquired with 90 cc Omnipaque 350 IV contrast. COMPARISON: Limited abdominal ultrasound 02/18/2025. FINDINGS: Lower chest: Unremarkable. Liver: Severe diffuse hepatic steatosis. No suspicious mass on this single phase contrast examination. Gallbladder and bile ducts: Cholelithiasis. No inflammation. No biliary ductal dilatation. Spleen: Upper limits of normal in size. No masses. Adrenal glands: Unremarkable. No nodules. Pancreas: Unremarkable. No mass or inflammation. Kidneys: Unremarkable. No suspicious masses, stones, or hydronephrosis. GI tract: Unremarkable. Normal in caliber. No evidence of obstruction. Normal appendix. Lymph nodes: No lymphadenopathy. Vasculature: Moderate scattered atherosclerotic calcifications. Abdominal aorta is normal in caliber. Mesenteric arteries are patent. SMV and portal vein are patent. Gastric varices. Omentum/Peritoneum/Abdominal Wall: Unremarkable. No free air or significant free fluid. Pelvis: Questionable subcentimeter uterine fibroid. Bones: Unremarkable for age. Procedure Note Lc Whelan MD - 02/18/2025 For Patients: As a result of the Cures Act, medical imagingexams and procedure reports are released immediately into your electronicmedical record. You may view this report before your referring provider.If you have questions, please contact your health care provider. INDICATION: Gastric varices. TECHNIQUE: CT abdomen and pelvis acquired with 90 cc Omnipaque 350 IV contrast. COMPARISON: Limited abdominal ultrasound 02/18/2025. FINDINGS: Lower chest: Unremarkable. Liver: Severe diffuse hepatic steatosis. No suspicious mass on this singlephase contrast examination. Gallbladder and bile ducts: Cholelithiasis. No inflammation. No biliaryductal dilatation. Spleen: Upper limits of normal in size. No masses. Adrenal glands: Unremarkable. No nodules. Pancreas: Unremarkable. No mass or inflammation. Kidneys: Unremarkable. No suspicious masses, stones, or hydronephrosis. GI tract: Unremarkable. Normal in caliber. No evidence of obstruction.Normal appendix. Lymph nodes: No lymphadenopathy. Vasculature: Moderate scattered atherosclerotic calcifications. Abdominalaorta is normal in caliber. Mesenteric arteries are patent. SMV and portalvein are patent. Gastric varices. Omentum/Peritoneum/Abdominal Wall: Unremarkable. No free air orsignificant free fluid. Pelvis: Questionable subcentimeter uterine fibroid. Bones: Unremarkable for age. IMPRESSION: 1. Gastric varices. 2. No other stigmata of portal hypertension. Patent SMV and portal veins. 3. Severe diffuse hepatic steatosis. 4. Cholelithiasis. Please note that all CT scans at this facility use dose modulation,iterative reconstruction, and/or weight-based dosing when appropriate toreduce radiation dose to as low as reasonably achievable. Dictated by Lc Whelan MD @ 02/18/2025 11:13:48 PM (Electronically Signed) Jacky Billings MD CT Final Result * TRANSFUSE RBC (NURSE COMMUNICATION ORDER) (02/18/2025 7:41 PM CDT) Blood BLOOD SPECIMEN / Unknown Sam Ware MD NURSING BLOOD BANK Final Result * RED BLOOD CELLS EA UNIT (02/18/2025 4:54 PM CDT) Only the most recent of3 resultswithin the time period is included. CROSSMATCH Compatible Compatible [facility] PRODUCT BLOOD TYPE O Rh Positive [facility] PRODUCT ID NUMBER [id number] [facility] B[facility] PRODUCT STATUS Transfused [facility] LAB BLOOD BANK PRODUCT DESCRIPTION RBC -1 LR [facility] PRODUCT CODE [id number] [facility]LOOD [facility] ISSUE DATE/TIME 02/18/25 17:09 [facility] Sam Ware MD BLOOD BANK Edited R esult - Final [facility] [address] [place] [address], [place] [phone] * PATH TISSUE EXAM (02/18/2025 1:44 PM CDT) Case Report Pathology Report Case: [id number] Authorizing Provider: Jacky Billings, Collected: 02/18/2025 1344 Ordering Location: [facility] Received: 02/18/2025 1440 [facility] Pathologist: Andres Donovan MD Specimen: Antrum Biopsy 02/21/2025 12:53 PM CDT [facility] Final Diagnosis A) STOMACH, ANTRUM, BIOPSY: 1. Reactive gastropathy, endoscopically ulcerative (see comment) a. Sampling: Antral mucosa b. Distribution: Antral mucosa 2. Negative for chronic inflammation, atrophy and Helicobacter 02/21/2025 12:53 PM CDT [facility] at 1253 CDT Comment A) The likely etiology is an ongoing non-inflammatory type mucosal injury due to a chemical type of injury; this may be due to ingestion of non-steroidal anti-inflammatory drugs, aspirin (via prostaglandin-med iated injury), excess alcohol, corticosteroids, or bile/alkaline reflux, the latter usually in the setting of a gastroenteric anastomosis. 02/21/2025 12:53 PM CDT [facility] Clinical Information Ms. Blanc is a 49 y.o. with anemia and possible hematemesis undergoing upper GI endoscopy which showed gastric ulcer. 02/21/2025 12:53 PM CDT [facility] Gross Description A) Received in formalin are 2 yan mucosal fragments averaging 3 mm in greatest dimension, which are entirely submitted in one cassette. It is labeled with the patient's name and designated antrum biopsy. Sea Taylor Олег 02/18/2025 6:43 PM 02/21/2025 12:53 PM CDT [facility] Microscopic Description The final diagnosis is based on microscopic examination of appropriate sections of all specimens. 02/21/2025 12:53 PM CDT [facility] Additional Information Interpreted at [facility] [employer] [facility] Central Laboratory - [address] [place] [address] [address], [place] [address] 02/21/2025 12:53 PM CDT [facility] Biopsy (Antrum Biopsy) 02/18/2025 1:44 PM CDT 02/18/2025 2:40 PM CDT Jacky Billings MD PATHOLOGY/CYTOLOGY nal Result [facility] [address] [place] [address], * ENDOSCOPY (02/18/2025 12:58 PM CDT) 02/18/2025 12:5 8 PM CDT Narrative Transcriptions Jacky Billings MD - 02/18/2025 3:05 PM CDT [employer] [facility] Patient Name: Ganga Blanc Procedure Date: 02/18/2025 Gender: Female Date of : 1975 Admit Type: Inpatient Procedure: Upper GI endoscopy Proceduralist: Jacky Billings MD - [facility] Indications/Pre-Op Diagnosis: Severe anemia, possible hematemesis Medications: Monitored Anesthesia Care Procedure Description: Risk of bleeding, infection, perforation, need for surgery and alternatives discussed. The endoscope [id number] was introduced through the mouth, and advanced to the third part of duodenum. Complications: No immediate complications. Estimated Blood Loss & Specimen: Specimen collected: Yes and sent to Laboratory Findings: The examined esophagus was normal. One non-bleeding gastric ulcer with no stigmata of bleeding was foundin the gastric antrum. The lesion was 6 mm in largest dimension.Biopsies were taken with a cold forceps for histology. The examined duodenum was normal. Type 1 isolated gastric varices (IGV1, varices located in the fundus) with no bleeding were found in the cardia. There were no stigmata of recent bleeding. Impressions/Post-Op Diagnosis: - Normal esophagus. - Non-bleeding gastric ulcer with no stigmata of bleeding.Biopsied. - Normal examined duodenum. - Type 1 isolated gastric varices (IGV1, varices located in thefundus), without bleeding. I do not believe this is the cause of blood lossbased on history, but needs further evalution. Recommendation: - BID PPI for two months - repeat EGD in 2 months - CT scan to assess further for gastric varices and rule out smv thrombosis - ok to advance diet Jacky Billings MD 02/18/2025 3:05:23 PM This report has been signed electronically. Note Initiated On: 02/18/2025 12:58 PM us Jacky Billings MD PROCEDURE ORD Final Result * TRANSFUSE RBC (NURSE COMMUNICATION ORDER) (02/18/2025 8:17 AM CDT) Blood BLOOD SPECIMEN / Unknown us Amie Miller MD NURSING BLOOD BANK Final Result * SCAN-CARDIAC STRIP (02/18/2025 7:05 AM CDT) us Scanner OTHER Final Result * TSH (02/18/2025 5:30 AM CDT) TSH 2.47 0.27 - 4.20 uIU/mL 02/18/2025 6:36 AM CDT [facility] Blood BLOOD SPECIMEN / Unknown Venipuncture / Unknown 02/18/2025 5:30 AM CDT 02/18/2025 5:56 AM CDT Narrative [facility] - 02/18/2025 6:36 AM CDT In Adults, TSH values between 5.00 and 10.00 uIU/ml do not necessarily indicate the presence of Hypothyroidism. Correlation with clinical findings such as presence of goiter and/or Thyroperoxidase (TPO) Antibody may be helpful. For more information please refer to LINDA 2004; 291: 228-238. us Amie Miller MD CHEMISTRY Fin al Result Performing Organization Address [facility] Co de Phone Number [facility] [address] [place] [id number], [place] * (ABNORMAL) PROTIME-INR (02/18/2025 5:30 AM CDT) INR 1.7(H) <1.3 02/18/2025 6:13 AM CDT [facility] PROTIME 19.9(H) 10.6 - 12.4 sec 02/18/2025 6:13 AM CDT [facility] Blood BLOOD SPECIMEN / Unknown Venipuncture / Unknown 02/18/2025 5:30 AM CDT 02/18/2025 5:57 AM CDT Narrative [facility] - 02/18/2025 6:13 AM CDT Therapeutic Range 2.0-3.0 for most anticoagulated patients 2.5-3.5 or 4.0 for high risk patients The INR is only used for patients on stable oral anticoagulant therapy. It makes no significant contribution to the diagnosis or treatment of patients whose Protime is prolonged for other reasons. INR results are increased when heparin levels exceed 1.0 U/mL, which corresponds to an aPTT >125 seconds if the patient is on UFH. us Amie Miller MD HEMATOLOGY Fin al Result Performing Organization Address City/[facility]/ZIP Co de Phone Number [facility] [address] [place] [address], [place] * (ABNORMAL) HEPATIC FUNCTION PANEL (02/18/2025 5:30 AM CDT) ALBUMIN 3.0(L) 4.0 - 4.9 g/dL 02/18/2025 6:36 AM CDT [facility] PROTEIN,TOTAL 4.7(L) 6.0 - 8.0 g/dL 02/18/2025 6:36 AM CDT [facility] BILIRUBIN,TOTAL 0.6 0.0 - 1.2 mg/dL 02/18/2025 6:36 AM CDT [facility] BILIRUBIN,DIRECT 0.3(H) 0.0 - 0.2 mg/dL 02/18/2025 6:36 AM CDT [facility] BILIRUBIN,INDIRE CT 0.3 0.2 - 0.8 mg/dL 02/18/2025 6:36 AM CDT [facility] ALK PHOSPHATASE 58 35 - 104 IU/L 02/18/2025 6:36 AM CDT [facility] ALT (SGPT) 14 10 - 35 IU/L 02/18/2025 6:36 AM CDT [facility] AST (SGOT) 30 10 - 35 IU/L 02/18/2025 6:36 AM CDT [facility] Blood BLOOD SPECIMEN / Unknown Venipuncture / Unknown 02/18/2025 5:30 AM CDT 02/18/2025 5:56 AM CDT us Amie Miller MD CHEMISTRY Fin al Result [facility] [address] [place] [address], [place] * US ABDOMEN LIMITED RUQ PORTABLE (02/18/2025 5:03 AM CDT) Anatomical Region Laterality Modality Abdomen, LIVER, PANCREAS, GALLBLADDER, SPLEEN Ultrasound 02/18/2025 6:02 AM CDT Impressions 02/18/2025 6:02 AM CDT Findings consistent with severe hepatic steatosis with focal sparing adjacent to the gallbladder fossa. No evidence of cholelithiasis. Nondilated extrahepatic bile duct. Dictated by Kris Lay MD @ 02/18/2025 6:02:39 AM (Electronically Signed) Narrative 02/18/2025 6:02 AM CDT For Patients: As a result of the Cures Act, medical imaging exams and procedure reports are released immediately into your electronic medical record. You may view this report before your referring provider. If you have questions, please contact your health care provider. INDICATION: Abnormal liver function tests. COMPARISON: None available. TECHNIQUE: Right upper quadrant grayscale and limited color Doppler ultrasound. FINDINGS: Liver: Diffuse homogeneous increased hepatic parenchymal echotexture consistent with steatosis. Relative hypoechoic hepatic parenchyma echotexture adjacent to the gallbladder fossa is consistent with focal sparing. Generally speaking, differential diagnostic considerations for diffusely increased hepatic parenchymal echotexture include include chronic hepatitis and cirrhosis. Smooth contour. No suspicious focal lesion. No intrahepatic biliary ductal dilatation. Gallbladder: Nondistended. Free of stones or significant sludge. Normal wall thickness. Negative sonographic Hussein sign. CBD: 5mm Pancreas: Normal where visualized. The pancreas is partially obscured and therefore incompletely evaluated. Right Kidney: Normal echotexture. No hydronephrosis. No convincing sonographic evidence of nephrolithiasis. Midline Vasculature: Unremarkable where visualized. Peritoneal Cavity: No significant ascites. Additional Findings: None. Procedure Note Kris Lay MD - 02/18/2025 For Patients: As a result of the Cures Act, medical imagingexams and procedure reports are released immediately into your electronicmedical record. You may view this report before your referring provider.If you have questions, please contact your health care provider. INDICATION: Abnormal liver function tests. COMPARISON: None available. TECHNIQUE: Right upper quadrant grayscale and limited color Doppler ultrasound. FINDINGS: Liver: Diffuse homogeneous increased hepatic parenchymal echotextureconsistent with steatosis. Relative hypoechoic hepatic parenchymaechotexture adjacent to the gallbladder fossa is consistent with focalsparing. Generally speaking, differential diagnostic considerations fordiffusely increased hepatic parenchymal echotexture include includechronic hepatitis and cirrhosis. Smooth contour. No suspicious focallesion. No intrahepatic biliary ductal dilatation. Gallbladder: Nondistended. Free of stones or significant sludge. Normalwall thickness. Negative sonographic Hussein sign. CBD: 5mm Pancreas: Normal where visualized. The pancreas is partially obscured andtherefore incompletely evaluated. Right Kidney: Normal echotexture. No hydronephrosis. No convincingsonographic evidence of nephrolithiasis. Midline Vasculature: Unremarkable where visualized. Peritoneal Cavity: No significant ascites. Additional Findings: None. IMPRESSION: Findings consistent with severe hepatic steatosis with focal sparingadjacent to the gallbladder fossa. No evidence of cholelithiasis.Nondilated extrahepatic bile duct. Dictated by Kris Lay MD @ 02/18/2025 6:02:39 AM (Electronically Signed) Amie Miller MD US Fin al Result * TRANSFUSE RBC (NURSE COMMUNICATION ORDER) (02/18/2025 5:02 AM CDT) Blood BLOOD SPECIMEN / Unknown Amie Miller MD NURSING BLOOD BANK Final Result * EKG 12 LEAD (02/18/2025 4:14 AM CDT) Interpretation Sinus tachycardia Left axis deviation Prolonged QT Abnormal ECG No previous ECGs available BEYOND NOW Ventricular Rate 101 BPM BEYOND NOW Atrial Rate 101 BPM BEYOND NOW P-R Interval 144 ms BEYOND NOW QRS Duration 80 ms BEYOND NOW QT 390 ms BEYOND NOW QTc 505 ms BEYOND NOW P Donald 49 degrees BEYOND NOW R Donald -61 degrees BEYOND NOW T Donald 56 degrees BEYOND NOW 02/18/2025 4:14 AM CDT 02/19/2025 12:41 AM CDT Amie Miller MD EKG ORD Fin al Result BEYOND NOW [place], [place] * (ABNORMAL) CBC WITH AUTO DIFFERENTIAL (02/18/2025 2:07 AM CDT) WHITE BLOOD COUNT 15.7(H) 4.5 - 11.0 thou/cu mm 02/18/2025 2:37 AM CDT [facility] RED BLOOD COUNT 2.21(L) 4.00 - 5.20 mil/cu mm 02/18/2025 2:37 AM T [facility] HEMOGLOBIN 6.1(LL) 12.0 - 16.0 g/dL 02/18/2025 2:37 AM [facility] HEMATOCRIT 18.7(L) 33.0 - 51.0 % 02/18/2025 2:37 AM [facility] MCV 85 80 - 100 fL 02/18/2025 2:37 AM T [facility] MCH 27.6 26.0 - 34.0 pg 02/18/2025 2:37 AM [facility] MCHC 32.6 32.0 - 36.0 g/dL 02/18/2025 2:37 AM [facility] RDW 17.0(H) 11.5 - 15.5 % 02/18/2025 2:37 AM [facility] PLATELET COUNT 161 140 - 440 thou/cu mm 02/18/2025 2:37 AM [facility] MPV 11.8(H) 6.5 - 11.0 fL 02/18/2025 2:37 AM [facility] NRBC 0.3 % 02/18/2025 2:37 AM [facility] ABS NRBC 0.0 thou /cu mm 02/18/2025 2:37 AM [facility] % NEUT 72.4 % 02/18/2025 2:37 AM [facility] % LYMPH 20.8 % 02/18/2025 2:37 AM [facility] % MONO 5.7 % 02/18/2025 2:37 AM [facility] % EOS 0.0 % 02/18/2025 2:37 AM [facility] % BASO 0.2 % 02/18/2025 2:37 AM [facility] % IMMATURE GRAN (METAS,MYELOS,SD OS) 0.9 % 02/18/2025 2:37 AM CDT [facility] ABSOLUTE NEUTROPHILS 11.4(H) 1.7 - 7.0 thou/cu mm 02/18/2025 2:37 AM CDT [facility] ABSOLUTE LYMPHOCYTES 3.3(H) 0.9 - 2.9 thou/cu mm 02/18/2025 2:37 AM CDT [facility] ABSOLUTE MONOCYTES 0.9(H) <0.9 thou/cu mm 02/18/2025 2:37 AM CDT [facility] ABSOLUTE EOSINOPHILS 0.0 <0.5 thou/cu mm 02/18/2025 2:37 AM CDT [facility] ABSOLUTE BASOPHILS 0.0 <0.3 thou/cu mm 02/18/2025 2:37 AM CDT [facility] ABSOLUTE IMMATURE GRANULOCYTES(MET ,MYELOS,PROS) 0.1 <0.3 thou/cu mm 02/18/2025 2:37 AM CDT [facility] Blood BLOOD SPECIMEN / Unknown Venipuncture / Unknown 02/18/2025 2:07 AM CDT 02/18/2025 2:23 AM CDT us Amie Miller MD HEMATOLOGY Fin al Result [facility] [address] [place] [address], * TYPE & SCREEN (02/18/2025 2:07 AM CDT) ABORH O Rh Positive 02/18/2025 3:40 AM CDT [facility] ANTIBODY SCREEN Negative Negative 02/18/2025 3:40 AM CDT [facility] SPECIMEN EXPIRATION DATE/TIME 02/21/25 23:59 02/18/2025 3:40 AM CDT [facility] Blood BLOOD SPECIMEN / Unknown Venipuncture / Unknown 02/18/2025 2:07 AM CDT 02/18/2025 2:23 AM CDT Amie Miller MD BLOOD BANK Fin al Result [facility] B[facility] BANK [address] [place] [address], * (ABNORMAL) LIPID PANEL W REFLEX MEASURED LDL (11/19/2021 1:44 PM CDT) Pathologist [facility] [place] CHOLESTEROL,TOTAL 204(H) 100 - 199 mg/dL 11/19/2021 11:12 PM CDT [facility] TRIGLYCERIDES 163(H) <150 mg/dL 11/19/2021 11:12 PM CDT [facility] HDL CHOLESTEROL 45 >40 mg/dL 11:12 PM CDT [facility] NON-HDL CHOLESTEROL 159(H) <145 mg/dl 11/19/2021 11:12 PM CDT [facility] CHOL/HDL RATIO 4.53(H) <4.50 11/19/2021 11:12 PM CDT [facility] LDL CHOLESTEROL 126 <=130 mg/dL 11/19/2021 11:12 PM CDT [facility] VLDL CHOLESTEROL 33(H) <=30 mg/dL 11/19/2021 11:12 PM CDT [facility] PROVIDER ORDERED STATUS RANDOM 11/19/2021 11:12 PM CDT [facility] Blood BLOOD SPECIMEN / Unknown Venipuncture / Unknown 11/19/2021 1:44 PM CDT 11/19/2021 1:45 PM CDT us Christine SMITH CHEMISTRY Final R esult [facility] [address] [place] [address], [place] * XR MAMMO MERLY BILAT DIAG [...] Christine SMITH MAMMO Final R esult * RN PICU THIN PREP PAP SCREEN IMAGED (01/16/2021 3:35 PM CDT) Case Report Gynecologic Cytology Report Case: [id number] Authorizing Provider: Christine Jeffrey PA Collected: 01/16/2021 1535 Ordering Location: [facility] Received: 01/16/2021 1715 Clinic First Screen: Alia De Souza Specimen: RN PICU ThinPrep Vial Screening, Cervical 01/30/2021 9:07 AM CDT [facility] [employer] [facility] INTERPRETATION/ RESULT NEGATIVE FOR INTRAEPITHELIAL LESION OR MALIGNANCY (NIL) (none) 01/30/2021 9:07 AM CDT [facility] at 0907 CDT SPECIMEN ADEQUACY Satisfactory for evaluation Endocervical component present 01/30/2021 9:07 AM CDT [facility] HPV REQUEST HPV if ASCUS 01/30/2021 9:07 AM CDT [facility] Date of LMP 01/02/2021 01/30/2021 9:07 AM CDT [facility] Last Pap Date unsure 01/30/2021 9:07 AM CDT [facility] Last Pap Result NIL 9:07 AM CDT [facility] [facility] Abnormal Pap or Thornton Bx in last 5 years No 01/30/2021 9:07 AM CDT [facility] Menstrual Status Regular Periods 01/30/2021 9:07 AM CDT [facility] Thornton Bx Done Today No 01/30/2021 9:07 AM CDT [facility] Additional Information None given 01/30/2021 9:07 AM CDT [facility] Comment: Cytology is screened at [facility], Central Laboratory - [address], [place] [address] [facility] Laboratory - [address] [place] [address], [place] [address] and [facility] - [address] [place] [address] Interpreted at [facility], Central Laboratory - [address], [place] [address] Automated Review Successful 01/30/2021 9:07 AM CDT [facility] Comment:Specimen processed s uccessfully by automated machine lead burner device, ThinPrep Imaging System, [employer] Note The pap test is a [...] and malignant lesions. 01/30/2021 9:07 AM CDT [facility] LAB[facility]ATORY Other (Cervical) Non-Blood / Unknown 01/16/2021 3:35 PM CDT 01/16/2021 5:15 PM CDT Christine SMITH PATHOLOGY/CYTOLOGY Bekah l Result [facility] [address] [place] [address], [place] * HEP C SARA (09/01/2008 2:45 PM HIGH LIFT OPERATOR) ANTI HCV Non-reacti ve [facility] Blood specimen (specimen) BLOOD SPECIMEN / Unknown 09/01/2008 2:45 PM HIGH LIFT OPERATOR 09/01/2008 2:39 PM HIGH LIFT OPERATOR Jacky Malik MD SEND OUTS Final Re sult [facility] [place]NAL ZIP [address] [place] [address] * HIV (09/01/2008 2:45 PM HIGH LIFT OPERATOR) ANTI HIV 1/2 Non-reacti ve [facility] Blood specimen (specimen) BLOOD SPECIMEN / Unknown 09/01/2008 2:45 PM HIGH LIFT OPERATOR 09/01/2008 2:39 PM HIGH LIFT OPERATOR Jacky Malik MD SEND OUTS Final Re sult [facility] INTERNAL ZIP [address] [place] [id number] from Last 3 Months or Most Recently Relevant to Health Maintenance Advance Directives * Full Code (Latest Code Status on File) Date Activated Date Inactivated Comments 02/18/2025 1:46 AM 02/20/2025 3:40 PM Question Answer Comments Code Status Discussion: Unable to Assess Preferences, Provider to review later Care Teams Religious Healer Relationship Specialty Start Date End Date Christine Jeffrey PA [address] [place] [address] PCP - General Physician Office Support 11/03/23
--- OUTSIDE RECORDS SUMMARY | 2025-02-22 01:46 | XMS_ITS | Clinical Summary ---
Author Organization [facility] Address [address] [place] [address] Care Team Providers Care Motorboat Mechanic Inboard Name Role Phone Christine Jeffrey Primary Care Provider [phone] Allergies Active Allergy Reactions Criticality Noted Date [...] on file Legal Sex Female 3:14 AM PROOFER APPRENTICE Gender Identity Not on file Sexual Orientation Not on file Last Filed Vital Signs Vital Sign Reading Time Taken Comments Blood Pressure 110/80 09/18/2005 8:30 AM PROOFER APPRENTICE Pulse - - Temperature 36.8 C (98.3 F) 09/18/2005 8:30 AM PROOFER APPRENTICE Respiratory Rate - - Oxygen Saturation - - Inhaled Oxygen Concentration - - Weight 72.6 kg (160 lb) 09/18/2005 8:30 AM PROOFER APPRENTICE Height 159.4 cm (5' 2.75) 09/18/2005 8:30 AM CS T Body Mass Index 28.57 09/18/2005 8:30 AM PROOFER APPRENTICE Plan of Treatment Health Maintenance Due Date [...] BILATERAL W/ STEFANO Routine 10/18/2024 2:46 PM PROOFER APPRENTICE Visit for screening mammogram HCL COMPREHENSIVE METABOLIC PANEL Routine 09/18/2005 9:27 AM PROOFER APPRENTICE Routine Medical Exam CL AFF A.M.A. LIPID PANEL Routine 09/18/2005 9:27 AM PROOFER APPRENTICE Routine Medical Exam HCL PAP THIN LAYER SCREEN Routine 09/18/2005 12:00 AM PROOFER APPRENTICE Routine Medical Exam from Last 3 Months or Most Recently Relevant to Health Maintenance Results * MA Screening Bilateral w/ Stefano (10/18/2024 2:46 PM PROOFER APPRENTICE) Anatomical Region Laterality Modality Breast Bilateral Mammography Impressions 10/19/2024 10:03 AM PROOFER APPRENTICE IMPRESSION: ACR BI-RADS Category 1: Negative BREAST CANCER SCREENING RECOMMENDATION: Routine yearly mammography beginning at age 40 or as discussed with your provider. The results and recommendations of this examination will be communicated to the patient. Alice Connors MD Narrative 10/19/2024 10:03 AM PROOFER APPRENTICE BILATERAL FULL FIELD DIGITAL SCREENING MAMMOGRAM WITH [...] (ABNORMAL) A.M.A. COMPREHENSIVE MET.PANEL (09/18/2005 9:27 AM PROOFER APPRENTICE) Sodium 140 133 - 144 mmol/L [facility] Potassium 4.3 3.4 - 5.3 mmol/L [facility] Chloride 101 94 - 109 mmol/L [facility] Carbon Dioxide 26 20 - 32 mmol/L [facility] Anion Gap 13 6 - 17 mmol/L [facility] Glucose 92 60 - 110 mg/dL [facility] Urea Nitrogen 11 5 - 24 mg/dL [facility] Creatinine 0.90 0.60 - 1.30 mg/dL [facility] GFR Estimate 78 >60 mL/min/1.7 m2 [facility] GFR Estimate If Black >80 >60 mL/min/1.7 m2 [facility] Calcium 9.2 8.5 - 10.4 mg/dL [facility] Bilirubin Total 0.5 0.2 - 1.3 mg/dL [facility] Albumin 4.9(H) 3.3 - 4.6 g/dL [facility] Protein Total 8.7(H) 6.0 - 8.2 g/dL [facility] Alkaline Phosphatase 83 40 - 150 U/L [facility] ALT 22 0 - 50 U/L [facility] AST 26 0 - 45 U/L [facility] 09/18/2005 9:27 AM PROOFER APPRENTICE 09/18/2005 9:32 AM PROOFER APPRENTICE us Jair Sheridan MD LABORATORY Final Result [facility] [address] [id number] * (ABNORMAL) A.M.A. LIPID PANEL (09/18/2005 9:27 AM PROOFER APPRENTICE) Cholesterol 200 0 - 200 mg/dL [facility] Comment: LDL Cholesterol is the primary guide to therapy: LDL-cholesterol goal in high risk patients is <100 mg/dL and in very high risk patients is <70 mg/dL. The NCEP recommends further evaluation of: patients with cholesterol <200 mg/dL if additional risk factors are present, cholesterol >240 mg/dL, triglycerides >150 mg/dL, or HDL <40 mg/dL. Triglycerides 157(H) 0 - 150 mg/dL [facility] HDL Cholesterol 52 50 - 110 mg/dL [facility] LDL Cholesterol Calculated 116 0 - 129 mg/dL [facility] Comment: LDL Cholesterol is the primary guide to therapy: LDL-cholesterol goal in high risk patients is <100 mg/dL and in very high risk patients is <70 mg/dL. VLDL-Cholesterol 31(H) 0 - 30 mg/dL [facility] Cholesterol/HDL Ratio 3.8 0.0 - 5.0 [facility] 09/18/2005 9:27 AM PROOFER APPRENTICE 09/18/2005 9:32 AM PROOFER APPRENTICE Jair Sheridan MD LABORATORY Final Result Performing Organization Address City/[facility]/ZIP Co de Phone Number [address] [address] * A THIN LAYER PAP SCREEN (09/18/2005 12:00 AM PROOFER APPRENTICE) PAP NIL COPATH Copath Report Patient Name: PEDRO RUSH MR#: [id number] Specimen #: [id number] Collected: 09/18/2005 Received: 09/19/2005 Reported: 09/20/2005 12:08 [...] HIEU Ferris (ASCP) Processed and screened at [facility] CLINICAL HISTORY: LMP: 09/04/05 Previous normal pap Date of Last Pap: 06/27, TESTING LAB LOCATION: [address] [address] COLLECTION SITE: Client: [facility] Location: [facility] (R) COPATH 09/18/2005 09/19/2005 9:0 0 AM PROOFER APPRENTICE us Jair Sheridan MD LABORATORY Final Result COPATH from Last 3 Months or Most Recently Relevant to Health Maintenance Insurance [facility] CHOICE Care Teams Motorboat Mechanic Inboard Relationship Specialty Start Date End Date Christine Jeffrey [address] [place] [address] PCP - General Physician Support Engineer 10/15/24
== END 2025-02-17 21:21 | disposition home or self-care (01) ==
LOC: AMB 02-21 11:11
PROVIDERS: PCP Physician Assistant Medical; Visit Provider Internal Medicine
DX: R11.2 Nausea with vomiting, unspecified (principal); R42 Dizziness and giddiness; R03.1 Nonspecific low blood-pressure reading
CPT/HCPCS: A0425; A0427

== ENCOUNTER 2025-02-17 22:11 | Emergency (ER) | payer OTHER, SELFPAY ==
[2025-02-17] VITALS (23 sets, daily range): BP systolic 80–103; BP diastolic 42–68; PULSE 106–131; RESP 13–26; TEMP 37.2; O2SAT 94–100
--- OUTSIDE RECORDS SUMMARY | 2025-02-17 22:13 | XMS_ITS | Clinical Summary ---
Author Organization [facility] Address [address] [place] [id number] Care Team Providers Care Auto Body Repairer Fiberglass Name Role Phone Christine Jeffrey Primary Care Provider Allergies Active Allergy Reactions Criticality Noted Date Comments Lisinopril Cough 02/09/2021 Medications omeprazole 20 mg tabletIndicatio ns:Nausea Take 1 Tablet (20 mg) by mouth once daily before a meal. 90 Tablet 3 4 Active chlorthalidone (HYGROTON) 25 mg tabletIndicatio ns:HTN (hypertension) Take 1 Tablet (25 mg) by mouth once daily. 30 Tablet 4 Active gabapentin (NEURONTIN) 300 mg capsuleIndicati ons:Alcohol dependence in remission (HC) Take 1 Capsule (300 mg) by mouth at bedtime. 30 Capsule 5 4 Active levothyroxine (SYNTHROID) 50 mcg tabletIndicatio ns:Hypothyroidi sm (acquired) Take 1 Tablet (50 mcg) by mouth once daily. BEFORE BREAKFAST 90 Tablet 4 Active potassium chloride (KLOR-CON M20) 20 mEq extended-releas e tablet (part/cryst)Ind ications:[place] lemia TAKE ONE TABLET BY MOUTH EVERY DAY 15 Tablet 4 Active Active Problems Problem Noted Date Diagnosed Date Paroxysmal SVT (supraventricular tachycardia) SVT (supraventricular tachycardia) 10/30/2021 Unspecified hypothyroidism 03/10/2009 Immunizations Immunization Administration Dates Next Due COVID-19 vaccine ([employer] NTBitX 30mcg/0.3mL) 12YO+ FAVIOLA-SUCROSE CHERRY, V 06/05/2022 Family History Medical History Relation Name Comments Unknown Father Good Health Half-Sister Cancer Maternal Grandfather lung Cancer Maternal Grandmother lung Hypertension Maternal Grandmother Cancer Mother thyroid Cancer-breast Other Mat. Great Gra ndmother Hypertension Sister Cancer-ovarian No Family History Relation Name Status Comments Father Half-Sister Maternal Grandfather Maternal Grandmother Mother Alive Other Sister Social History Tobacco Use Types Packs/Day Years Used Date Smoking Tobacco: Every Day Cigarettes Smokeless Tobacco: Never Tobacco Cessation:Ready to Q uit: Yes; Counseling Given: Yes Comments:3-15 cigs a day Alcohol Use Standard Drinks/Week Comments Yes 23.3 (1 standard drink = 0.6 oz pure alcohol) PHQ-2 Answer Date Recorded PHQ-2 TOTAL SCORE 2 01/16/2021 Social Connections Answer Date Recorded Do you often feel lonely or isolated from those around you? 0 11/03/2023 Financial Resource Strain Answer Date R ecorded Difficulty of Paying Living Expenses 3 11/03/2023 Difficulty of Paying Living Expenses Not on file 11/03/2023 Food Insecurity Answer Date Recorded Do you worry your food will run out before you are able to buy more? 1 11/03/2023 Transportation Needs Answer Date Record ed Does lack of transportation keep you from medica l appointments? 1 11/03/2023 Does lack of transportation keep you from work, meetings or getting things that you need? 1 11/03/2023 Housing Stability Answer Date Recorded What is your housing situation today? 1 11/03/2023 Utilities Answer Date Recorded Do you have trouble paying f or utilities (for example, heat, electricity, water, phone)? 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 Not on file Not on file Obstetrics History Last Filed Vital Signs Vital Sign Reading Time Taken Comments Blood Pressure 120/62 05/06/2024 1:36 PM CDT Pulse 96 04/19/2024 2:03 PM CDT Temperature 36.6 C (97.8 F) 2010 1:11 PM CLOCK MECHANIC Respiratory Rate 13 05/06/2024 1:36 PM CDT Oxygen Saturation 98% 10/30/2021 7:32 AM CLOCK MECHANIC Inhaled Oxygen Concentration - - Weight 54.1 kg (119 lb 3.2 oz) 05/06/2024 1:36 P M CDT Height 160 cm (5' 3) 05/08/2022 1:23 PM CDT Body Mass Index 21.12 05/08/2022 1:23 PM CDT Plan of Treatment Health Maintenance Due Date Last Done Comments Tdap 1986 Hepatitis B series for 19+ ( 1 of 3 - 19+ 3-dose series) 1994 Pneumococcal series for age 6-49 (1 of 2 - PCV) 1994 Tetanus booster 1995 Colonoscopy through age 75 2020 Depression screening for age 12+ 01/17/2022 01/18/20, 01/16/2021 Mammogram for age 45-75 01/18/2022 01/18/2021 BMI (ht and wt on same day) for age 18+ 05/08/2023 05/08/2022, 11/19/2021, 10/30/2021, Additional history exists Pap test for age 21-65 01/17/2024 01/16/2021, 2008 COVID-19 vaccine series ( season) 2024 06/05/2022, 03/17/2021 Influenza Vaccine (Season Ended) 2025 Lipids for age 45-75 11/19/2026 11/19/2021 HIV for age 15-65 Completed 09/01/2008 Hepatitis C screening for ag e 18-79 Completed 09/01/2008 Procedures Procedure Name Priority Date/Time Associated Diagnosis Comments LIPID PANEL W REFLEX MEASURED LDL Routine 11/19/2021 1:44 PM CDT HTN (hypertension) XR MAMMO MERLY BILAT DIAG Routine 01/18/2021 2:27 PM CDT Lump of right breast DESIGN TECHNOLOGY TEACHER THIN PREP PAP SCREEN IMAGED Routine 01/16/2021 3:35 PM CDT Screening for cervical cancer ANTI HIV 1/2 Routine 09/01/2008 2:45 PM CLOCK MECHANIC Contact with or Exposure to Venereal Diseases ANTI HCV Routine 09/01/2008 2:45 PM CLOCK MECHANIC Contact with or Exposure to Venereal Diseases from Last 3 Months or Most Recently Relevant to Health Maintenance Results * (ABNORMAL) LIPID PANEL W REFLEX MEASURED LDL (11/19/2021 1:44 PM CDT) CHOLESTEROL,TOTAL 204(H) 100 - 199 mg/dL 11/19/2021 11:12 PM CDT [facility] TRIGLYCERIDES 163(H) <150 mg/dL 11/19/2021 11:12 PM CDT [facility] HDL CHOLESTEROL 45 >40 mg/dL 11:12 PM CDT [facility] NON-HDL CHOLESTEROL 159(H) <145 mg/dl 11/19/2021 11:12 PM CDT [facility] CHOL/HDL RATIO 4.53(H) <4.50 11/19/2021 11:12 PM CDT [facility] LDL CHOLESTEROL 126 <=130 mg/dL 11/19/2021 11:12 PM CDT [facility] VLDL CHOLESTEROL 33(H) <=30 mg/dL 11/19/2021 11:12 PM CDT [facility] PROVIDER ORDERED STATUS RANDOM 11/19/2021 11:12 PM CDT [facility] Blood BLOOD SPECIMEN / Unknown Venipuncture / Unknown 11/19/2021 1:44 PM CDT 11/19/2021 1:45 PM CDT us Christine SMITH CHEMISTRY Final R esult [facility] [address] [place] [address], [place] * XR MAMMO MERLY BILAT DIAG (01/18/2021 2:27 PM CDT) Anatomical Region Laterality Modality BREASTS, Breast Left, Breast Right Bilateral Mammography 01/18/2021 2:46 PM CDT Impressions 01/19/2021 1:40 PM CDT Normal dense fibroglandular tissue RIGHT breast and incidental normal intramammary lymph node RIGHT breast. Normal RIGHT axillary lymph node. No evidence of malignancy. RECOMMENDATIONS: Annual follow-up. Results and recommendations discussed with the patient. BI-RADS Category 2: Benign Dictated by: Herbert Bermudez MD @01/18/2021 2:46:26 PM / CRL:servando Narrative 01/19/2021 1:40 PM CDT PATIENTS: You will also receive a letter with your examination results in an easy to read format. If you have questions about your results, please contact your referring provider. DIGITAL DIAGNOSTIC BILATERAL MAMMOGRAM USING TOMOSYNTHESIS AND COMPUTER-AIDED DETECTION, 01/18/2021 RIGHT BREAST ULTRASOUND, 01/18/2021 CLINICAL HISTORY: RIGHT breast lump. COMPARISON: None. TECHNIQUE: Digital BILATERAL mammogram in four projections. Tomosynthesis and CAD utilized. Real-time ultrasound imaging of RIGHT breast with imaging documentation. Scanning was performed by both the technologist and the radiologist. BREAST COMPOSITION: The breast is heterogeneously dense, which may obscure small masses. FINDINGS: 3D CC and 3D MLO mammogram submitted bilaterally. Normal fibroglandular tissue. Normal intramammary lymph node upper outer quadrant RIGHT breast. No architectural distortion. No suspicious masses or calcifications. Targeted RIGHT breast ultrasound 11 o'clock 4 cm from the nipple performed. Normal dense fibroglandular tissue. No suspicious mass or fibrocystic change. Normal RIGHT axillary lymph node. Normal intramammary lymph node 11 o'clock RIGHT breast. us Christine SMITH MAMMO Final R esult * DESIGN TECHNOLOGY TEACHER THIN PREP PAP SCREEN IMAGED (01/16/2021 3:35 PM CDT) Case Report Gynecologic Cytology Report Case: [id number] Authorizing Provider: Christine Jeffrey PA Collected: 01/16/2021 1535 Ordering Location: [facility] Received: 01/16/2021 1719 Clinic First Screen: Alia De Souza Specimen: DESIGN TECHNOLOGY TEACHER ThinPrep Vial Screening, Cervical 01/30/2021 9:07 AM CDT [facility] Stackdriver [facility] INTERPRETATION/ RESULT NEGATIVE FOR INTRAEPITHELIAL LESION OR MALIGNANCY (NIL) (none) 01/30/2021 9:07 AM CDT [facility] at 0907 CDT SPECIMEN ADEQUACY Satisfactory for evaluation Endocervical component present 01/30/2021 9:07 AM CDT [facility] HPV REQUEST HPV if ASCUS 01/30/2021 9:07 AM CDT [facility] Date of LMP 01/02/2021 01/30/2021 9:07 AM CDT [facility] Last Pap Date unsure 01/30/2021 9:07 AM CDT [facility] Last Pap Result NIL 9:07 AM CDT [facility] Abnormal Pap or Hurt Bx in last 5 years No 01/30/2021 9:07 AM CDT [facility] Menstrual Status Regular Periods 01/30/2021 9:07 AM CDT [facility] Hurt Bx Done Today No 01/30/2021 9:07 AM CDT [facility] Additional Information None given 01/30/2021 9:07 AM CDT [facility] Comment: Cytology is screened at [facility] - [address], [place] [address] and [facility] - [address], [place] [address] and [facility] - [address] [place] [address] Interpreted at [facility] - [address], [place] [address] Automated Review Successful 01/30/2021 9:07 AM CDT [facility] Comment:Specimen processed s uccessfully by automated dishwasher busser device, ThinPrep Imaging System, [employer] Note The pap test is a screening technique, not a diagnostic procedure. It is used primarily to screen for squamous cancers and precursor lesions. Published studies have shown that it is subject to both false negative and false positive results. The pap test should not be used as the sole means to diagnose or exclude pre-malignant and malignant lesions. 01/30/2021 9:07 AM CDT [facility] Other (Cervical) Non-Blood / Unknown 01/16/2021 3:35 PM CDT 01/16/2021 5:15 PM CDT Christine SMITH PATHOLOGY/CYTOLOGY Bekah l Result [facility] [address] [place] [address], [place] * HEP C SARA (09/01/2008 2:45 PM CLOCK MECHANIC) ANTI HCV Non-reacti ve [facility] Blood specimen (specimen) BLOOD SPECIMEN / Unknown 09/01/2008 2:45 PM CLOCK MECHANIC 09/01/2008 2:39 PM CLOCK MECHANIC Jacky Malik MD SEND OUTS Final Re sult [facility] [place]NAL ZIP [address] [place] [address] * HIV (09/01/2008 2:45 PM CLOCK MECHANIC) ANTI HIV 1/2 Non-reacti ve [facility] Blood specimen (specimen) BLOOD SPECIMEN / Unknown 09/01/2008 2:45 PM CLOCK MECHANIC 09/01/2008 2:39 PM CLOCK MECHANIC Jacky Malik MD SEND OUTS Final Re sult [facility] INTERNAL ZIP [address] [place] [address] from Last 3 Months or Most Recently Relevant to Health Maintenance Care Teams Auto Body Repairer Fiberglass Relationship Specialty Start Date End Date Christine Jeffrey PA [address] [place] [address] PCP - General Physician Executive Associate 11/03/23
--- OUTSIDE RECORDS SUMMARY | 2025-02-17 22:13 | XMS_ITS | Clinical Summary ---
Author Organization [facility] Address [address] [place] [address] Care Team Providers Care Language Pathologist Name Role Phone Christine Jeffrey Primary Care Provider [phone] Allergies Active Allergy Reactions Criticality Noted Date Comments No Known Drug Allergy 07/06/2003 Medications ADVIL 200 MG OR TABS 1 TABLET EVERY 4 TO 6 HOURS NEEDED 07/06/2003 Active VICODIN 5-500 MG OR TABS 1 TABLET EVERY 4 TO 6 HOURS NEEDED 28 0 07/20/2003 Active PREDNISONE 20 MG OR TABS 1 TABLET DAILY 10 0 07/20/2003 Active ZYBAN 150 MG OR TBCR 1 tab QD (Once per day)x3 days then 1 tab BID (Twice per day) x 6 weeks 87 0 09/18/2005 Active ORDER FOR DMEIndications:S prain of wrist, unspecified site wrsit splint 1 0 09/18/2005 Active Family History Medical History Relation Comments Cancer Maternal Grandfather lung Cancer Maternal Grandmother lung Relation Status Comments Maternal Grandfather Maternal Grandmother Social History Tobacco Use Types Packs/Day Years Used Date Smoking Tobacco: Every Day Alcohol Use Standard Drinks/Week Comments Yes 0 (1 standard drink = 0.6 oz pur e alcohol) rare Comments No Sex and Gender Information Value Date Recorded Sex Assigned at Not on file Legal Sex Female 3:14 AM REPAIRER SWITCHGEAR Gender Identity Not on file Sexual Orientation Not on file Last Filed Vital Signs Vital Sign Reading Time Taken Comments Blood Pressure 110/80 09/18/2005 8:30 AM REPAIRER SWITCHGEAR Pulse - - Temperature 36.8 C (98.3 F) 09/18/2005 8:30 AM REPAIRER SWITCHGEAR Respiratory Rate - - Oxygen Saturation - - Inhaled Oxygen Concentration - - Weight 72.6 kg (160 lb) 09/18/2005 8:30 AM REPAIRER SWITCHGEAR Height 159.4 cm (5' 2.75) 09/18/2005 8:30 AM CS T Body Mass Index 28.57 09/18/2005 8:30 AM REPAIRER SWITCHGEAR Plan of Treatment Health Maintenance Due Date Last Done Comments ADVANCE CARE PLANNING 1975 ANNUAL REVIEW OF HM ORDERS 1975 CT COLONOGRAPHY 1975 FIT 1975 FLEX SIG 1975 sDNA (Cologuard) 1975 COLONOSCOPY 1985 COLORECTAL CANCER SCREENING 1985 HEPATITIS B VACCINE (1 of 3 - 19+ 3-dose series) 1994 PNEUMOCOCCAL VACCINE: PEDIATRICS (0 to 5 YEARS) AND AT-RISK PATIENTS (6 to 49 YEARS) (1 of 2 - PCV) 1994 DTAP/TDAP/TD VACCINE (1 - Tdap) 2000 DIABETES SCREENING 09/18/2008 09/18/2005, 07/06/2003 LIPID 2015 09/18/2005 YEARLY PREVENTIVE VISIT 01/16/2022 01/16/2021, 09/18 PAP 01/17/2024 01/16/2021, 08/26, 07/06/2003, Additional history exists COVID-19 VACCINE ( - 2023- season) 2024 06/05/2022, 03/17/2021 PHQ-2 (once per calendar year) 2024 INFLUENZA VACCINE (Season Ended) 2025 ZOSTER VACCINE (1 of 2) 2025 MAMMO SCREENING 10/18/2026 10/18/2024, 01/18/2021 HEPATITIS C SCREENING Completed 09/01/2008 HIV SCREENING Completed 09/01/2008 HPV VACCINE Aged Out No longer eligi ble based on patient's age to complete this topic MENINGITIS VACCINE Aged Out No longer eligible based on patient's age to complete this topic Procedures Procedure Name Priority Date/Time Associated Diagnosis Comments MA SCREENING BILATERAL W/ STEFANO Routine 10/18/2024 2:46 PM REPAIRER SWITCHGEAR Visit for screening mammogram HCL COMPREHENSIVE METABOLIC PANEL Routine 09/18/2005 9:27 AM REPAIRER SWITCHGEAR Routine Medical Exam CL AFF A.M.A. LIPID PANEL Routine 09/18/2005 9:27 AM REPAIRER SWITCHGEAR Routine Medical Exam HCL PAP THIN LAYER SCREEN Routine 09/18/2005 12:00 AM REPAIRER SWITCHGEAR Routine Medical Exam from Last 3 Months or Most Recently Relevant to Health Maintenance Results * MA Screening Bilateral w/ Stefano (10/18/2024 2:46 PM REPAIRER SWITCHGEAR) Anatomical Region Laterality Modality Breast Bilateral Mammography Impressions 10/19/2024 10:03 AM REPAIRER SWITCHGEAR IMPRESSION: ACR BI-RADS Category 1: Negative BREAST CANCER SCREENING RECOMMENDATION: Routine yearly mammography beginning at age 40 or as discussed with your provider. The results and recommendations of this examination will be communicated to the patient. Alice Connors MD Narrative 10/19/2024 10:03 AM REPAIRER SWITCHGEAR BILATERAL FULL FIELD DIGITAL SCREENING MAMMOGRAM WITH TOMOSYNTHESIS Performed on: 10/18/24 No comparisons were made when reading this study. Technique: This study was evaluated with the assistance of Computer-Aided Detection. Breast Tomosynthesis was used in interpretation. Findings: The breasts are heterogeneously dense, which may obscure small masses. There is no radiographic evidence of malignancy. us Screening Mammogram Selfreferral IMG MAMMOGRAPHY ORDERABLES Final Result * (ABNORMAL) A.M.A. COMPREHENSIVE MET.PANEL (09/18/2005 9:27 AM REPAIRER SWITCHGEAR) Sodium 140 133 - 144 mmol/L [facility] Potassium 4.3 3.4 - 5.3 mmol/L [facility] Chloride 101 94 - 109 mmol/L [facility] Carbon Dioxide 26 20 - 32 mmol/L [facility] Anion Gap 13 6 - 17 mmol/L [facility] Glucose 92 60 - 110 mg/dL [facility] Urea Nitrogen 11 5 - 24 mg/dL [facility] Creatinine 0.90 0.60 - 1.30 mg/dL [facility] GFR Estimate 78 >60 mL/min/1.7 m2 [facility] GFR Estimate If Black >80 >60 mL/min/1.7 m2 [facility] Calcium 9.2 8.5 - 10.4 mg/dL [facility] Bilirubin Total 0.5 0.2 - 1.3 mg/dL [facility] Albumin 4.9(H) 3.3 - 4.6 g/dL [facility] Protein Total 8.7(H) 6.0 - 8.2 g/dL [facility] Alkaline Phosphatase 83 40 - 150 U/L [facility] ALT 22 0 - 50 U/L [facility] AST 26 0 - 45 U/L [facility] 09/18/2005 9:27 AM REPAIRER SWITCHGEAR 09/18/2005 9:32 AM REPAIRER SWITCHGEAR us Jair Sheridan MD LABORATORY Final Result [facility] [address] [id number] * (ABNORMAL) A.M.A. LIPID PANEL (09/18/2005 9:27 AM REPAIRER SWITCHGEAR) Cholesterol 200 0 - 200 mg/dL [facility] Comment: LDL Cholesterol is the primary guide to therapy: LDL-cholesterol goal in high risk patients is <100 mg/dL and in very high risk patients is <70 mg/dL. The NCEP recommends further evaluation of: patients with cholesterol <200 mg/dL if additional risk factors are present, cholesterol >240 mg/dL, triglycerides >150 mg/dL, or HDL <40 mg/dL. Triglycerides 157(H) 0 - 150 mg/dL [facility] HDL Cholesterol 52 50 - 110 mg/dL [facility] LDL Cholesterol Calculated 116 0 - 129 mg/dL [facility] Comment: LDL Cholesterol is the primary guide to therapy: LDL-cholesterol goal in high risk patients is <100 mg/dL and in very high risk patients is <70 mg/dL. VLDL-Cholesterol 31(H) 0 - 30 mg/dL [facility] Cholesterol/HDL Ratio 3.8 0.0 - 5.0 [facility] 09/18/2005 9:27 AM REPAIRER SWITCHGEAR 09/18/2005 9:32 AM REPAIRER SWITCHGEAR Jair Sheridan MD LABORATORY Final Result Performing Organization Address City/[facility]/ZIP Co de Phone Number [address] [address] * A THIN LAYER PAP SCREEN (09/18/2005 12:00 AM REPAIRER SWITCHGEAR) PAP NIL COPATH Copath Report Patient Name: PEDRO RUSH MR#: [id number] Specimen #: [id number] Collected: 09/18/2005 Received: 09/19/2005 Reported: 09/20/2005 12:08 Ordering Phy(s): JAIR SHERIDAN SPECIMEN/STAIN PROCESS: Pap thin layer prep screening ([facility]) Pap-Cyto x 1, Reflex HPV x 1 SOURCE: Cervical, endocervical Pap thin layer prep screening ([facility]) SPECIMEN ADEQUACY: Satisfactory for evaluation. -Transitional zone component absent. CYTOLOGIC INTERPRETATION: Negative for Intraepithelial Lesion or Malignancy Organism(s): -Fungal organisms morphologically consistent with Agnes spp. Electronically signed out by: HIEU Ferris (ASCP) Processed and screened at [facility] CLINICAL HISTORY: LMP: 09/04/05 Previous normal pap Date of Last Pap: 06/27, TESTING LAB LOCATION: [address] [address] COLLECTION SITE: Client: [facility] Location: [facility] (R) COPATH 09/18/2005 09/19/2005 9:0 0 AM REPAIRER SWITCHGEAR us Jair Sheridan MD LABORATORY Final Result COPATH from Last 3 Months or Most Recently Relevant to Health Maintenance Insurance [facility] Care Teams Language Pathologist Relationship Specialty Start Date End Date Christine Jeffrey [address] [place] [address] PCP - General Physician Corrosion Control Fitter 10/15/24
--- NOTE | 2025-02-17 22:19 | ED.GENADULT ---
HPI - General Adult General Chief complaint: Hypotension Stated complaint: nausea vomiting Time Seen by Provider: 02/17/25 22:17 History of Present Illness HPI narrative: Patient is a 49-year-old woman with history of alcohol use disorder and alcoholic hepatitis recently lost her job. She has been on a drinking binge lasting several days but states that she has anything to drink for the last 3 days. She presents with generalized weakness tremor mild confusion dizziness lightheadedness and fatigue. She has been vomiting a red liquid but has been at having any diarrhea. She has been trying to replace her fluids at home but has been unable to keep. She called for an ambulance tonight. She describes no chest pain no orthopnea no PND no fevers or chills. Related Data Home Medications ?Medication ?Instructions ?Recorded ?Confirmed omeprazole 20 mg capsule,delayed 20 mg PO DAILY 03/28/24 03/28/24 release Previous Rx's ?Medication ?Instructions ?Recorded gabapentin 300 mg capsule See Rx Instructions .Route 03/29/24 .COMPLEX alcohol withdrawal #16 caps diltiazem HCl 120 mg tablet 120 mg PO DAILY #30 tabs 06/10/24 (Cardizem) Allergies Allergy/AdvReac Type Severity Reaction Status Date / Time banana Allergy Mild Verified 03/28/24 16:01 Review of Systems Status of ROS: Reports: 10 or more systems reviewed and unremarkable except as noted in History and below [facility] Medical History PSVT (paroxysmal supraventricular tachycardia) ?I47.10 - Supraventricular tachycardia, unspecified (ICD-10) Hypothyroidism ?E03.9 - Hypothyroidism, unspecified (ICD-10) Essential hypertension ?I10 - Essential (primary) hypertension (ICD-10) Alcohol use disorder ?F10.90 - Alcohol use, unspecified, uncomplicated (ICD-10) Elevated LFTs ?R79.89 - Other specified abnormal findings of blood chemistry (ICD-10) Surgical History No history of previous surgery Family History Son Liver disease Social History Narrative: in 2014, currently living with son Guy. Daughter Rajwinder in [place], children would share medical decision making if needed. Full Code. 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 + 1/2ppd smoking, actively working on quitting. ETOH daily (1L/day), actively working on quitting. Denies illicit drug use. What is your current living situation?: I presently have a place to live Problems where you live: no known problems Problems where you live details: none In the past 12 months, utilities in danger of being shut off: no In past 12 months, lack of transportation kept you from medical appts, meetings, work, or getting things needed for daily living: no In the past 12 mos, have been you worried that your food would run out before you had money to buy more?: never true In the past 12 mos, the food you bought just didn't last and you didn't have money to buy more?: never true Highest level of school completed/degree received: Associate degree: occupational, technical, vocational program Smoking Status: Current every day smoker What tobacco products do you use: cigarettes Smoking packs per day: 1 Smoking cigarettes per day: 20.0 Years smoked: 35 Smoking pack-years: 35.00 Do you use any of these nicotine containing products: None Second hand tobacco smoke exposure: No How often do you have a drink containing alcohol: never AUDIT-C Alcohol total score: 0 Non-prescribed substance use: denies use Caffeine: No How often does anyone, including family, friends and others, physically hurt you: never How often does anyone, including family, friends and others, insult or talk down to you: never How often does anyone, including family, friends and others, threaten you with harm: never How often does anyone, including family, friends and others, scream or curse at you: never service: No Exam Narrative: Exam Narrative: EXAM GENERAL: Patient appears acutely ill and pale. EYES: No scleral icterus. THYROID: no thyroid nodules or thyromegaly. LYMPH: No supraclavicular or cervical lymphadenopathy. SKIN: Visible skin seen during exam normal or with benign process only. EXT: No dependent lower extremity pedal edema. HEART: Tachycardic. LUNGS: Clear to auscultation bilaterally with no crackles or wheezes. ABD: Soft, non tender, non distended. PSYCH: Good eye contact, speech is not pressured. Const: Vital Signs, click to edit/add: Vital Signs - 24 hr 02/17/25 22:17 02/17/25 22:20 02/17/25 22:24 Temperature 98.9 F Pulse Rate 112 H Pulse Rate [Left P ulse Oximeter] 120 H Respiratory Rate 24 19 Blood Pressure 101/68 Blood Pressure [Le ft Upper Arm] 92/53 L Pulse Oximetry 100 100 100 Oxygen Delivery Me thod Room Air 02/17/25 22:25 02/17/25 22:30 02/17/25 22:32 Temperature Pulse Rate 110 H 107 H 109 H Pulse Rate [Left P ulse Oximeter] Respiratory Rate 19 16 15 Blood Pressure 90/60 Blood Pressure [Le ft Upper Arm] Pulse Oximetry 100 97 94 Oxygen Delivery Me thod 02/17/25 22:39 02/17/25 22:43 02/17/25 22:45 Temperature Pulse Rate 114 H 120 H 106 H Pulse Rate [Left P ulse Oximeter] Respiratory Rate 24 22 19 Blood Pressure 83/54 L 86/50 L Blood Pressure [Le ft Upper Arm] Pulse Oximetry 100 100 98 Oxygen Delivery Me thod 02/17/25 22:55 02/17/25 22:57 02/17/25 23:00 Temperature Pulse Rate 113 H 119 H 111 H Pulse Rate [Left P ulse Oximeter] Respiratory Rate 26 H 21 13 Blood Pressure 82/42 L Blood Pressure [Le ft Upper Arm] Pulse Oximetry 100 100 98 Oxygen Delivery Me thod 02/17/25 23:01 02/17/25 23:05 02/17/25 23:12 Temperature Pulse Rate 116 H 112 H Pulse Rate [Left P ulse Oximeter] Respiratory Rate 22 19 Blood Pressure 101/60 Blood Pressure [Le ft Upper Arm] Pulse Oximetry 100 100 100 Oxygen Delivery Me thod 02/17/25 23:15 02/17/25 23:22 Temperature Pulse Rate 111 H 119 H Pulse Rate [Left P ulse Oximeter] Respiratory Rate 15 18 Blood Pressure 80/54 L Blood Pressure [Le ft Upper Arm] Pulse Oximetry 99 100 Oxygen Delivery Me thod Course Course ED Course: Patient seen and examined. EKG troponin CBC comprehensive metabolic panel ETOH drug screen PT PTT lipase lactic acid level pending. Begin hydration and suspect will need type and cross and transfuse. Vital Signs Vital signs: Initial Vital Signs Temperature 98.9 F 02/17/25 22:17 Temperature Source Temporal Artery Scan 02/17/25 22:17 Pulse Rate 120 H 02/17/25 22:17 Respiratory Rate 24 02/17/25 22:17 Blood Pressure 92/53 L 02/17/25 22:17 Blood Pressure Mean 66 L 02/17/25 22:17 Blood Pressure Position Semi-Fowlers 02/17/25 22:17 Pulse Oximetry 100 02/17/25 22:17 Oxygen Delivery Method Room Air 02/17/25 22:17 Vital Signs Temperature 98.9 F 02/17/25 22:17 Pulse Rate 120 H 02/17/25 22:17 Respiratory Rate 24 02/17/25 22:17 Blood Pressure 92/53 L 02/17/25 22:17 Pulse Oximetry 100 02/17/25 22:17 Oxygen Delivery Method Room Air 02/17/25 22:17 Temperature 98.9 F 02/17/25 22:17 Pulse Rate 119 H 02/17/25 23:22 Respiratory Rate 18 02/17/25 23:22 Blood Pressure 80/54 L 02/17/25 23:22 Pulse Oximetry 100 02/17/25 23:22 Oxygen Delivery Method Room Air 02/17/25 22:17 Medications Administered Medications: Discontinued Medications Generic Name Dose Route Start Last Admin Trade Name Freq PRN Reason Stop Dose Admin Sodium Chloride 1,000 mls @ 1,000 mls/hr 02/17/25 22:22 02/17/25 23:38 0.9 % Sodium Chloride 1000 Ml IV 02/17/25 23:21 Infused .Q1H BRANDIE Infusion Ondansetron HCl 4 mg 02/17/25 23:08 02/17/25 23:18 Ondansetron 2 Mg/Ml Inj IVP 02/17/25 23:09 4 mg ONCE ONE Administration Pantoprazole Sodium 40 mg 02/17/25 23:02 02/17/25 23:09 Pantoprazole Sodium 40 Mg Inj IVP 02/17/25 23:03 40 mg ONCE ONE Administration Tranexamic Acid 1,000 mg 02/17/25 23:25 02/17/25 23:33 Tranexamic Acid 100 Mg/Ml Inj IV 02/17/25 23:26 1,000 mg ONCE ONE Administration Medical Decision Making MDM Narrative Medical decision making narrative: Patient presents with a GI bleed after several days of alcohol binge. Her hemoglobin is found to be 5.2. She initially is tachycardic with stable blood pressure but her blood pressure has become more tenuous. We were giving were crystalloid at this point to type and crossing for 2 units. She has received IV Protonix and TXA. We have launched a helicopter to transport the patient to [facility] will redo have an accepting provider. Total critical care time 1:00 hour. Lab Data Labs: Lab Results 02/17/25 02/17/25 02/17/25 Range/Units 22:18 22:19 22:38 WBC 21.02 H (4.50-11.00) K/uL RBC 1.97 L (4.00-5.20) m/uL Hgb 5.2 L* (12.0-16.0) gm/dL Hct 17.2 L (33.0-51.0) % MCV 87 (80-100) fL MCH 26 (26-34) pg MCHC 30 L (32-36) gm/dL RDW Coeff of Iliana 19.2 H (11.5-15.5) % Plt Count 283 (140-440) K/uL Neut % (Auto) 69.6 (42.0-72.0) % Lymph % (Auto) 24.0 (20-44) % Dorado % (Auto) 5.3 (0.0-11.0) % Eos % (Auto) 0.0 (0.0-7.0) % Baso % (Auto) 0.3 (0.0-3.0) % Neut # (Auto) 14.60 H (1.7-7.0) K/uL Lymph # (Auto) 5.00 H (0.90-2.90) K/uL Dorado # (Auto) 1.10 H (0.00-0.90) K/UL Eos # (Auto) 0.00 (0.00-0.50) K/uL Baso # (Auto) 0.10 (0.00-0.30) K/uL Abs Immat Gran (auto) 0.20 (0.00-0.30) K/uL Imm/Tot Granulo (auto) 0.8 % INR (0.91-1.10) APTT (23-33) Seconds Sodium 135 (135-149) mmol/L Potassium 3.3 L (3.6-5.1) mmol/L Chloride 100 (96-114) mmol/L Carbon Dioxide 14 L (20-32) mmol/L Anion Gap 21 H (7-15) mEq/L BUN 36 H (5-24) mg/dL Creatinine 1.2 (0.5-1.5) mg/dL Estimated GFR 55 ml/min Glucose 153 H (60-115) mg/dL Lactate 10.1 H* (0.5-1.9) mmol/L Calcium 7.6 L (8.4-10.6) mg/dL Total Bilirubin 1.0 (0.1-1.5) mg/dL AST 48 H (12-35) U/L ALT 43 H (4-35) U/L Alkaline Phosphatase 72 (40-150) U/L Troponin I < 0.01 (0.01-0.04) ng/mL Total Protein 5.9 L (6.0-8.3) g/dL Albumin 3.5 (3.3-5.0) g/dL Lipase 42 (23-300) U/L Ethyl Alcohol < 0.01 (0.01-0.03) % Blood Type Antibody Screen Crossmatch (AHG) 02/17/25 02/17/25 Range/Units 22:55 22:56 WBC (4.50-11.00) K/uL RBC (4.00-5.20) m/uL Hgb (12.0-16.0) gm/dL Hct (33.0-51.0) % MCV (80-100) fL MCH (26-34) pg MCHC (32-36) gm/dL RDW Coeff of Iliana (11.5-15.5) % Plt Count (140-440) K/uL Neut % (Auto) (42.0-72.0) % Lymph % (Auto) (20-44) % Dorado % (Auto) (0.0-11.0) % Eos % (Auto) (0.0-7.0) % Baso % (Auto) (0.0-3.0) % Neut # (Auto) (1.7-7.0) K/uL Lymph # (Auto) (0.90-2.90) K/uL Dorado # (Auto) (0.00-0.90) K/UL Eos # (Auto) (0.00-0.50) K/uL Baso # (Auto) (0.00-0.30) K/uL Abs Immat Gran (auto) (0.00-0.30) K/uL Imm/Tot Granulo (auto) % INR 1.52 H (0.91-1.10) APTT 26 (23-33) Seconds Sodium (135-149) mmol/L Potassium (3.6-5.1) mmol/L Chloride (96-114) mmol/L Carbon Dioxide (20-32) mmol/L Anion Gap (7-15) mEq/L BUN (5-24) mg/dL Creatinine (0.5-1.5) mg/dL Estimated GFR ml/min Glucose (60-115) mg/dL Lactate (0.5-1.9) mmol/L Calcium (8.4-10.6) mg/dL Total Bilirubin (0.1-1.5) mg/dL AST (12-35) U/L ALT (4-35) U/L Alkaline Phosphatase (40-150) U/L Troponin I (0.01-0.04) ng/mL Total Protein (6.0-8.3) g/dL Albumin (3.3-5.0) g/dL Lipase (23-300) U/L Ethyl Alcohol (0.01-0.03) % Blood Type O Positive Antibody Screen NEGATIVE Crossmatch (AHG) See Detail Discharge Plan Discharge Clinical Impression: GI (gastrointestinal bleed) Patient Disposition: [facility] Condition: Guarded Activity Level: Other Discharge Diet: Other Prescriptions: No Action omeprazole 20 mg capsule,delayed release(DR/EC) 20 mg PO DAILY gabapentin 300 mg capsule See Rx Instructions .ROUTE .COMPLEX Qty: 16 0RF Rx Instructions: Day 1: 300 mg every 6 hours scheduled Day 2: 300 mg every 8 hours scheduled Day 3: 300 mg every 12 hours scheduled Day 4: 300 mg at night Also, take 300 mg as needed for symptoms of alcohol withdrawal diltiazem HCl [Cardizem] 120 mg tablet 120 mg PO DAILY Qty: 30 0RF Stand Alone Forms: MyHealth Info Instructions
[2025-02-17] MEDS: 0.9 % SODIUM CHLORIDE 1000 ml 1,000 ML IV (22:24)
[2025-02-17 22:52] LABS: Basophils Percent Auto 0.3 % (0.0-3.0); Hematocrit 17.2 % (33.0-51.0); Immature Granulocytes Pct Auto 0.8 %; Mean Corpuscular HGB Conc 30 gm/dL (32-36); Mean Corpuscular Hemoglobin 26 pg (26-34); Mean Corpuscular Volume 87 fL (80-100); Monocytes Percent Auto 5.3 % (0.0-11.0); Neutrophils Percent Auto 69.6 % (42.0-72.0); Platelet Count* 283 K/uL (140-440); RDW Coefficient of Variation % 19.2 % (11.5-15.5); Red Blood Count 1.97 m/uL (4.00-5.20); White Blood Count* 21.02 K/uL (4.50-11.00)
[2025-02-17 22:57] LABS: Hemoglobin* 5.2 gm/dL (12.0-16.0)
[2025-02-17] MEDS: PANTOPRAZOLE SODIUM 40 MG INJ IVP (23:09)
[2025-02-17 23:10] LABS: Lactate* 10.1 mmol/L (0.5-1.9)
[2025-02-17 23:17] LABS: Albumin* 3.5 g/dL (3.3-5.0); Chloride* 100 mmol/L (96-114)
[2025-02-17 23:18] LABS: Potassium* 3.3 mmol/L (3.6-5.1); Sodium* 135 mmol/L (135-149)
[2025-02-17] MEDS: ONDANSETRON 2 MG/ML inj 4 MG IVP (23:18)
[2025-02-17 23:20] LABS: Alanine Aminotransferase* 43 U/L (4-35); Aspartate Amino Transferase* 48 U/L (12-35); Blood Urea Nitrogen* 36 mg/dL (5-24); Creatinine* 1.2 mg/dL (0.5-1.5); Estimated Glomerular Filt Rate 55 ml/min
[2025-02-17 23:21] LABS: Alkaline Phosphatase* 72 U/L (40-150); Anion Gap 21 mEq/L (7-15); Calcium* 7.6 mg/dL (8.4-10.6); Carbon Dioxide* 14 mmol/L (20-32); Glucose* 153 mg/dL (60-115); Lipase* 42 U/L (23-300); Total Protein* 5.9 g/dL (6.0-8.3)
[2025-02-17 23:25] LABS: INR 1.52 (0.91-1.10); Partial Thromboplastin Time* 26 Seconds (23-33); Prothrombin Time 19.3 Seconds
[2025-02-17 23:31] LABS: Ethanol* < 0.01 % (0.01-0.03)
[2025-02-17] MEDS: TRANEXAMIC ACID 100 MG/ML INJ 1000 MG IV (23:33)
[2025-02-17 23:43] LABS: Troponin I* < 0.01 ng/mL (0.01-0.04)
[2025-02-18] VITALS: PULSE 134; RESP 30; O2SAT 95
[2025-02-18 00:01] VITALS: BP 90/51; PULSE 139; RESP 24; O2SAT 100
[2025-02-18 00:08] VITALS: BP 90/51; PULSE 133; RESP 18; TEMP 35.6; O2SAT 100
[2025-02-18 00:25] VITALS: BP 88/49; PULSE 130; RESP 20; TEMP 36.4; O2SAT 100
[2025-02-18 14:49] LABS: Slide Review Reflex No
== END 2025-02-18 00:41 | disposition short-term general hospital (02) ==
PROVIDERS: Emergency Provider Internal Medicine; PCP Physician Assistant Medical
DX: K92.2 Gastrointestinal hemorrhage, unspecified (principal); F10.20 Alcohol dependence, uncomplicated
CPT/HCPCS: 36415; 36430; 80053; 80306; 82077; 83605; 83690; 84484; 85025; 85610; 85730; 86850; 86900; 86901; 86922; 93005; 94761; 99284; 99291; J2405; J2470; J7030; P9016

== ENCOUNTER 2025-02-18 00:30 | Outpatient (CLI) | payer OTHER, SELFPAY | END 2025-02-18 00:31 | disposition home or self-care (01) | LOC: AMB 02-21 11:27 | PROVIDERS: PCP Physician Assistant Medical; Visit Provider Family Medicine | DX: K92.2 Gastrointestinal hemorrhage, unspecified (principal) | CPT/HCPCS: A0425; A0434 ==